=== PATIENT | female | born 1990 | race African-American/Black ===

== ENCOUNTER 2025-02-22 05:53 | Emergency (ER) | payer BC, SELFPAY ==
[2025-02-22 05:54] VITALS: BP 128/63; PULSE 108; RESP 18; TEMP 36.9; O2SAT 100; BMI 26.7
--- NOTE | 2025-02-22 06:24 | CT_ITS ---
PROCEDURE: ABDOMEN/PELVIS WITHOUT CONT 02/22/2025 REASON FOR EXAM: LEFT FLANK PAIN TECHNIQUE: Abdomen and pelvis CT without intravenous contrast. Noncontrast technique limits evaluation of the abdominal and pelvic viscera. Coronal and Sagittal reconstruction series were provided. One or more dose reduction techniques were used (e.g., Automated exposure control, adjustment of the mA and/or kV according to patient size, use of iterative reconstruction technique). PATIENT PREPARATION: Per protocol ORAL CONTRAST TYPE: None. COMPARISON: None available FINDINGS: The lung bases are clear. The liver, adrenal glands, kidneys, gallbladder, pancreas and spleen appear within limits. No renal stones, hydronephrosis or perinephric stranding. Abdominal aorta appears within limits on noncontrast imaging. No adenopathy. No bowel dilation or free air. Normal caliber appendix without secondary signs. Sigmoid diverticulosis without diverticulitis. The ovaries/adnexa, uterus and bladder appear within limits on noncontrast imaging. Right ovary is not well distinguished from adjacent bowel. Trace right lower quadrant free fluid. The visualized osseous structures appear within limits. CT/Abdomen/Pelvis without Cont IMPRESSION: No definite evidence of acute process on noncontrast imaging as above. Reading Location: [id number]
[2025-02-22] MEDS: Ketorolac 30 MG/ML Syringe IV (06:42)
[2025-02-22] MEDS: 0.9% Normal Saline (1000mL) 1,000 ML 999 ML IV (06:42)
[2025-02-22] MEDS: Orphenadrine 60 MG/2 ML Ampul IV (06:42)
[2025-02-22 06:52] LABS: Mucous, Urine 0 SEEN /hpf (<or=2+); White Blood Cells 0 SEEN /hpf (0-5)
[2025-02-22 06:54] LABS: Absolute Lymphocyte Count 1.73 X10^3/uL (0.83-4.51); Absolute Neutrophil Count 2.7 X10^3/uL (2.0-7.7); Basophil# 0.03 X10^3/uL; Basophil% 0.6 % (0-1); Eosinophils% 5.9 % (0-5); Hematocrit 38.8 % (37-47); Hemoglobin 13.4 g/dL (12.0-15.0); Lymphocyte # 1.73 X10^3/ul (0.83-4.51); Lymphocyte % 33.9 % (19-41); Mean Corp Hgb Conc 34.5 g/dL (32-36); Mean Corpuscular Hgb 31.8 pg (27.0-32.0); Mean Corpuscular Volume 92.2 fL (81-99); Mean Platelet Vol. 10.2 fl (6.2-12.0); Monocyte# 0.38 X10^3/uL; Monocyte% 7.5 % (0-10); NRBC Flagged by Analyzer 0 % (0-5); Neutrophil # 2.65 X10^3/uL (2.7-7.7); Neutrophil % 51.9 % (47-70); POSITIVE COUNT YES; RBC Distribution Width CV 12.2 % (11.6-14.6); RBC Distribution Width SD 41.6 fl (35.1-43.9); Red Blood Count 4.21 M/mm3 (4.2-5.4); White Blood Count 5.1 K/mm3 (4.4-11.0)
[2025-02-22 06:54] LABS: Color, Urine Yellow (Yellow); Glucose, Dipstick Normal (Normal); Ketone-Dipstick Negative (Negative); Leukocyte Esterase-Dipstick Negative /ul (Negative); Nitrite-Dipstick Negative (Negative); Occult Blood-Urine 10 /ul (Negative); Protein-Dipstick 15 mg/dl (Negative); Specific Gravity, Urine 1.015 (1.002-1.030); Urine Bilirubin Dipstick Negative (Negative); Urine Clarity Clear (Clear); Urine Urobilinogen Normal (Normal)
[2025-02-22 06:58] LABS: Differential Indicated SCAN CRITERIA MET
[2025-02-22 07:01] LABS: Amorphous Sediment 1+; Bacteria 2+ /hpf (None Seen); Red Blood Cells-Urine 0-5 SEEN /hpf (0-5); Squamous Epithelial Cells - UA 0-5 SEEN /hpf (5-10)
[2025-02-22 07:07] LABS: Anion Gap 11 (5-15); BUN 9 mg/dL (4-19); BUN/Creat Ratio 11.3 RATIO (10-20); Calcium,Total 8.7 mg/dL (7.6-11.0); Carbon Dioxide 22.6 mmol/L (21.0-32.0); Chloride 105 mmol/L (98-108); Creatinine, Serum 0.79 mg/dL (0.70-1.20); EST Glomerular Filtration Rate 101 (>60); Estimated Creatinine Clearance 105.97 ml/min (50-250); Glucose 100 mg/dL (70-99); Potassium 3.8 mmol/L (3.3-5.1); Sodium Level 138 mmol/L (133-145)
[2025-02-22 07:14] LABS: Internal QC Validated? YES +Cl - CLEAR BKGD; Pregnancy, Urine Negative Negative
--- NOTE | 2025-02-22 07:42 | EX.ED.DYSGE1 ---
HPI History of Present Illness Chief Complaint: Other, Pain/Inj Informant: patient and spouse/S.O. Narrative Narrative: Patient is a 34-year-old female who reports no significant past medical history. She states at work she lifts heavy objects and does repetitive lifting and has been working 6 days a week. She denies any sudden onset of pain but states over the past week she has noticed pain in the left back region. She states there is increased pain with motion. She denies any radiation of pain into the leg and she denies any loss of bowel or bladder control or IV drug use. She has no concern for and states there is been no dysuria or hematuria. However she states that her pain worsened last night keeping her from sleeping and secondary to that she comes in for evaluation. PFSH PFSH Medical History no medical history no medical history Home Medications ?Medication ?Instructions ?Recorded ?Last Taken ?Type ibuprofen 600 mg tablet 600 mg PO 4X/DAY PRN pain #40 tabs 02/22/25 Unknown Rx methocarbamol 500 mg tablet 1,000 mg (2 x 500 mg) PO 4X/DAY 02/22/25 Unknown Rx PRN Muscle pain/spasm #56 tabs Allergy/AdvReac Type Severity Reaction Status Date / Time codeine Allergy Hives Verified 02/22/25 05:54 Social History Smoking Status: Current every day smoker tobacco type: cigarettes and e-cigarettes ROS ROS ED Constitutional Constitutional ED: Denies chills or fever(s) ENT ENT ED: Denies sore throat Cardiovascular Cardiovascular: Denies chest pain Respiratory/Chest Respiratory/Chest: Denies cough or dyspnea Gastrointestinal Gastrointestinal: Denies abdominal pain, diarrhea, nausea or vomiting Genitourinary Genitourinary ED: Denies dysuria, hematuria or urinary frequency Musculoskeletal Musculoskeletal: Reports back pain Integumentary Denies rash Neurologic Neurologic: Denies headache(s) Hematologic/Lymphatic Hematologic/Lymphatic: Denies easy bleeding or easy bruising EXAM Physical Exam Const Vital Signs: 02/22/25 05:54 02/22/25 05:58 Temperature 98.4 F Temperature Source Oral Pulse Rate 108 H Respiratory Rate 18 Respiratory Effort Normal Respiratory Pattern Normal Blood Pressure 128/63 H Blood Pressure Mean 84 Pulse Ox 100 Oxygen Delivery Method Room Air Positive well nourished and well developed General Appearance ED: well developed; Negative for pallor HEENT HEENT Narrative: Normocephalic atraumatic Eyes PERRL and EOMs intact bilaterally General Eye ED: Negative for pale conjunctiva or scleral icterus Neck supple Neck Narrative: No nuchal rigidity or meningeal signs Resp normal respiratory effort and clear to auscultation bilaterally Cardio regular rate and regular rhythm Rate: other Other Details: Heart is regular rate and rhythm without murmurs rubs or gallops Radial and carotid pulses are equal and symmetric GI normal to inspection, nondistended, normoactive bowel sounds, non-tender, non-distended and no masses GI Narrative: No voluntary guarding rigidity or pulsatile mass Auscultation: normoactive bowel sounds Palpation: soft Back/Spine Back/Spine Narrative: Positive left CVA pain as noted There is no bony deformity or step-off of the thoracic or lumbar spine no midline tenderness to palpation Patient also has left paralumbar tenderness and spasm that worsens slightly with back extension and rotation No saddle anesthesia. Negative straight leg raise. No clonus or Babinski. Patellar reflexes are plus 2 out of 4 bilaterally No overlying soft tissue changes to suggest trauma or infection Extremity normal to inspection Neuro oriented x3, CN's II-XII intact bilaterally and no sensory deficits noted Sensorium / Orientation: alert Motor Exam: strength 5/5 throughout Psych mental status grossly normal Skin no rashes or lesions noted and no wounds General Skin Exam: Negative for jaundice or pallor MDM MDM MDM Narrative Medical decision making narrative: Patient arrived to the ER with stable vitals and reported left-sided back pain. She denied any sudden onset of the symptoms but does report a repetitive and physical job. Therefore differential diagnosis is for lumbosacral strain the patient could also have atypical UTI or pyelonephritis or kidney stone. She is also potentially having pain secondary to an unknown complication. test was negative going against complication. Blood work showed no white count or left shift or signs of JELENA. Urine sample showed +2 bacteria but there are no white cells and she is nitrite negative and she does not have dysuria indicating this is normal rosa and there is no need for antibiotics. This indicates she does not have UTI or pyelonephritis. After receiving IV fluids as well as Toradol and Norflex she did report improvement of her pain. Therefore at this time as CT scan reveals no obvious signs of kidney stone or intestinal pathology and blood work is normal as well there is no need for further workup as exam and history indicate this is most likely musculoskeletal back pain in origin. She also does not have risk factors for cauda equina or epidural abscess or discitis or osteomyelitis I do not feel there is need for potential MRI or emergent orthopedic/spine consultation. Patient will be placed on symptomatic medications and is otherwise safe for discharge History & Record Review Discussion w/independent historian: Patient and Significant other Lab Data Attestation: I reviewed the patient's lab results. Labs: Laboratory Results - last 24 hr 02/22/25 02/22/25 06:34 06:36 WBC 5.1 RBC 4.21 Hgb 13.4 Hct 38.8 MCV 92.2 MCH 31.8 MCHC 34.5 RDW Std Deviation 41.6 RDW Coeff of Pierre 12.2 Plt Count TNP MPV 10.2 Immature Gran % (Auto) 0.200 Neut % (Auto) 51.9 Lymph % (Auto) 33.9 [place] % (Auto) 7.5 Eos % (Auto) 5.9 H Baso % (Auto) 0.6 Absolute Neuts (auto) 2.7 Absolute Lymphs (auto) 1.73 Nucleated RBC % 0 Platelet Estimate ADEQUATE Sodium 138 Potassium 3.8 Chloride 105 Carbon Dioxide 22.6 Anion Gap 11 BUN 9 Creatinine 0.79 Estim Creat Clear Calc 105.97 Est GFR (MDRD) Non-Af 101 BUN/Creatinine Ratio 11.3 Glucose 100 H Calcium 8.7 Urine Color Yellow Urine Clarity Clear Urine pH 6.0 Ur Specific [place] 1.015 Urine Protein 15 H Urine Glucose (UA) Normal Urine Ketones Negative Urine Occult Blood 10 H Urine Nitrite Negative Urine Bilirubin Negative Urine Urobilinogen Normal Ur Leukocyte Esterase Negative Urine RBC 0-5 SEEN Urine WBC 0 SEEN Ur Squamous Epith Cells 0-5 SEEN Amorphous Sediment 1+ Urine Bacteria 2+ Urine Mucus 0 SEEN Urine Test Negative Radiography Diagnostic Testing: Clinical Impression(s) from Imaging Studies Abdomen/Pelvis CT 02/22/25 06:24 IMPRESSION: No definite evidence of acute process on noncontrast imaging as above. Reading Location: [facility] Discharge Plan Triage Chief Complaint: Other, Pain/Inj ED Provider: Curtis Diamond Dx/Rx/DC Orders Clinical Impression: Acute myofascial strain of lumbosacral region Instructions: Understanding Lumbosacral Strain, ED Back Sprain/Strain Prescriptions: New ibuprofen 600 mg tablet 600 mg PO 4X/DAY PRN (Reason: pain) Qty: 40 0RF methocarbamol 500 mg tablet 1,000 mg PO 4X/DAY PRN (Reason: Muscle pain/spasm) Qty: 56 0RF Stand Alone Forms: ED Work / School Excuse Primary Care Provider: Care Physician,No Primary Referrals: Ravi Marvin MD [Med Staff - Active Staff] - Care Physician,No Primary [Primary Care Provider] - Activity Restrictions/Additional Instructions: Your blood work revealed no clinically significant changes and your urine sample showed no sign of infection. CT scan showed no sign of kidney stone or intestinal infection either. This indicates your pain is musculoskeletal most likely from your repetitive lifting at work. Continue to stretch and heat the low back to help reduce pain and speed healing and take the prescribed medication as directed. Return to the ER should you have any further concerns Print Language: Brazilian Disposition Disposition: Home, Self Care
[2025-02-22 07:47] LABS: Platelet Estimate ADEQUATE (ADEQ)
[2025-02-22 08:12] VITALS: BP 128/76; PULSE 64; RESP 18; TEMP 37.1; O2SAT 99
== END 2025-02-22 08:13 | disposition home or self-care (01) ==
PROVIDERS: Emergency Provider Emergency Medicine; Visit Provider Emergency Medicine
DX: S39.012A Strain of muscle, fascia and tendon of lower back, initial encounter (principal); X58.XXXA Exposure to other specified factors, initial encounter; F17.210 Nicotine dependence, cigarettes, uncomplicated; F17.290 Nicotine dependence, other tobacco product, uncomplicated; Z79.899 Other long term (current) drug therapy
CPT/HCPCS: 74176; 80048; 81001; 81025; 85025; 96361; 96374; 96375; 99283; A4216

== ENCOUNTER 2025-09-13 12:06 | Emergency (ER) | payer SELFPAY ==
[2025-09-13 12:07] VITALS: BP 121/77; PULSE 117; RESP 16; TEMP 36.8; O2SAT 100; BMI 26.4
--- NOTE | 2025-09-13 13:12 | RAD_ITS ---
PROCEDURE: CHEST PA AND LATERAL 09/13/2025 REASON FOR EXAM: LEFT BACK PAIN TECHNIQUE: Procedure Code: RADCXR Modality: DX Procedure: CHEST PA AND LATERAL COMPARISON: None FINDINGS: Hardware: None Heart: The heart size is normal. Mediastinum: The mediastinal contour is unremarkable. Lungs: The lungs are clear. Bones: The bones are unremarkable. RAD/Chest PA and Lateral IMPRESSION: NO ACUTE FINDINGS. Reading Location: [id number]
[2025-09-13 13:34] LABS: Mucous, Urine 0 SEEN /hpf (<or=2+)
[2025-09-13 13:36] LABS: Color, Urine Yellow (Yellow); Glucose, Dipstick Normal (Normal); Ketone-Dipstick 15 mg/dl (Negative); Leukocyte Esterase-Dipstick 25 /ul (Negative); Nitrite-Dipstick Negative (Negative); Occult Blood-Urine 10 /ul (Negative); Protein-Dipstick 15 mg/dl (Negative); Specific Gravity, Urine 1.010 (1.002-1.030); Urine Bilirubin Dipstick Negative (Negative)
[2025-09-13 13:46] LABS: Red Blood Cells-Urine 0-5 SEEN /hpf (0-5); Squamous Epithelial Cells - UA 0-5 SEEN /hpf (5-10)
[2025-09-13 13:47] LABS: Internal QC Validated? YES +Cl - CLEAR BKGD; Pregnancy, Urine Negative Negative; Record Kit Lot#,Urine Preg 980607
--- NOTE | 2025-09-13 15:01 | ED.VIS.BACK ---
HPI History of Present Illness Chief Complaint: Back Narrative Narrative: Patient is a 34-year-old female with no signal past medical history presenting with left-sided back pain for the past few days. She states is always aching in that area but is been worse over the past few days. She denies any new physical activity that could have caused it. States the pain will radiate up to her arm and sometimes down to her hip. She notes it is worse with twisting and bending. Denies any change with breathing. Denies any associate shortness of breath or chest pain. Denies any nausea or vomiting. Denies any fever. Denies any urinary symptoms. Notes her last menstrual period was repaired August 26 and she is not concerned for . Is tried ibuprofen at home with no relief. Had similar symptoms this spring was seen in the ER and had a CAT scan. At that time she states her workup was negative and she was sent home with medications for the pain. [facility] Medical History Back pain Home Medications ?Medication ?Instructions ?Recorded ?Last Taken ?Type ibuprofen 600 mg tablet 600 mg PO 4X/DAY PRN pain #40 tabs 09/13/25 Unknown Rx methocarbamol 500 mg tablet 1,000 mg (2 x 500 mg) PO 4X/DAY 09/13/25 Unknown Rx PRN Muscle pain/spasm #56 tabs Allergy/AdvReac Type Severity Reaction Status Date / Time codeine Allergy Hives Verified 09/13/25 12:08 Family History no significant family his Social History Smoking Status: Current every day smoker tobacco type: cigarettes and e-cigarettes ROS ROS ED Constitutional Constitutional ED: Denies chills or fever(s) Cardiovascular Cardiovascular: Denies chest pain Respiratory/Chest Respiratory/Chest: Denies dyspnea Gastrointestinal Gastrointestinal: Denies abdominal pain, nausea or vomiting Musculoskeletal Musculoskeletal: Reports back pain; Denies arthralgias or myalgias Integumentary Denies rash Neurologic Neurologic: Denies paresthesias or weakness Hematologic/Lymphatic Hematologic/Lymphatic: Denies easy bleeding or easy bruising EXAM Physical Exam Const Vital Signs: 09/13/25 12:07 09/13/25 15:07 Temperature 98.3 F 97.8 F Temperature Source Oral Pulse Rate 117 H 90 Respiratory Rate 16 18 Blood Pressure 121/77 H 148/52 H Blood Pressure Mean 91 84 Pulse Ox 100 100 Oxygen Delivery Method Room Air Positive well nourished and well developed General Appearance ED: well developed and NAD HEENT Reports moist mucous membranes Neck supple and no JVD Resp normal respiratory effort and clear to auscultation bilaterally Auscultation: Negative for rales, rhonchi or wheezes Cardio regular rate and regular rhythm Cardio Narrative: 2+ radial pulses Back/Spine normal to inspection Back/Spine Narrative: Mild tenderness to palpation of the left inferolateral scapular region. No overlying skin changes present. No midline tenderness. Extremity normal to inspection General Extremety ED: Negative for edema General Extremity: Negative for edema Neuro oriented x3 Sensorium / Orientation: alert Psych mental status grossly normal Skin no rashes or lesions noted and no wounds MDM MDM MDM Narrative Medical decision making narrative: Patient is evaluated for atraumatic left back pain. Seems to be more in the thoracic region but is close to her CVA region. Differential includes muscle spasm, thoracic radiculopathy, pneumonia, pneumothorax and referred renal colic pain. Chest x-ray reviewed looking for signs of pleural effusion in that area as well as pneumothorax. This is negative on my interpretation as well as with radiology. Urinalysis does not show any significant hematuria or signs of infection. CT from earlier this spring reviewed which did not show any kidney stones on interpretation. Patient was receives IM Toradol in the ER. Repeat evaluation she states she is feeling much improved. She was tachycardic upon arrival however at time of discharge per nursing staff her blood pressure is now within her heart rate is below 100. Her pain is not pleuritic and she is having shortness of breath of the lower suspicion for pulmonary emboli. Patient will be discharged home symptomatic treatment with Robaxin and Motrin. Given return precautions. Discharged home in stable and improved condition. Lab Data Attestation: I reviewed the patient's lab results. Labs: Laboratory Results - last 24 hr 09/13/25 13:20 Urine Color Yellow Urine Clarity Clear Urine pH 7.0 Ur Specific [place] 1.010 Urine Protein 15 H Urine Glucose (UA) Normal Urine Ketones 15 H Urine Occult Blood 10 H Urine Nitrite Negative Urine Bilirubin Negative Urine Urobilinogen Normal Ur Leukocyte Esterase 25 H Urine RBC 0-5 SEEN Urine WBC 0-5 SEEN Ur Squamous Epith Cells 0-5 SEEN Urine Bacteria 1+ Urine Mucus 0 SEEN Urine Test Negative Radiography Diagnostic Testing: Clinical Impression(s) from Imaging Studies Chest X-Ray 09/13/25 13:12 IMPRESSION: NO ACUTE FINDINGS. Reading Location: [facility] Discharge Plan Triage Chief Complaint: Back Other Complaint: Lower Extremity Injury ED Provider: Phuong Brandon Dx/Rx/DC Orders Clinical Impression: Acute left-sided thoracic back pain Instructions: ED Back Spasm, No Trauma Prescriptions: Continued methocarbamol 500 mg tablet 1,000 mg PO 4X/DAY PRN (Reason: Muscle pain/spasm) Qty: 56 0RF ibuprofen 600 mg tablet 600 mg PO 4X/DAY PRN (Reason: pain) Qty: 40 0RF Stand Alone Forms: ED Work / School Excuse Primary Care Provider: Care Physician,No Primary Referrals: Jeinse Pyle [Non-Staff, Medical] Care Physician,No Primary [Primary Care Provider, Medical] Activity Restrictions/Additional Instructions: Your chest x-ray was normal. Your urinalysis was not consistent with infection or kidney stone. Your test was negative. I suspect this is a muscle strain. If you develop any respiratory symptoms or chest pain please return the emergency room. I do recommend using [id number] Lidoderm patches as well to help with the pain Print Language: Nicaraguan Disposition Disposition: Home, Self Care Discharge Date/Time: 09/13/25 15:08
[2025-09-13 15:07] VITALS: BP 148/52; PULSE 90; RESP 18; TEMP 36.6; O2SAT 100
--- OUTSIDE RECORDS SUMMARY | 2025-09-13 17:55 | XMS RPT_ITS | CCD ---
Author Organization [employer] Inform ion Partnership [facility] Care Team Providers Care Sanipractic Physician Name Role Phone Curtis Diamond Attending [facility] Care Physician, No Primary Primary Care Unava ilable Allergies Allergy Classification Reported Allergen(s) Allergy Type Date of Onset Reaction(s) Facility (1 source) Codeine Drug Allergy 02-22-2025 [facility] Repository Problems Problem Classification Problem Date Documented Da te Episodic/Chronic Residual codes; unclassified (1 source) Pain, unspecified; Translations: [Pain, unspecified] Onset: 02-27-2025 Episodic Results Test Name Value Interpretation Reference Range Facility Abdomen/Pelvis without Conto n 02-22-2025 Abdomen/Pelvis without Cont [facility] Imaging Services [address] [place], [place] [id number] Abdomen/Pelvis without Cont MR#: [id number] Acct: [id number] Name: DEBBY HART Rep #: [id number] : 1990 F 34 From: Alan Mckinney MD PCP: Care Physician,No Primary Status: REG ER Study: Abdomen/Pelvis without Cont Date of Exam: 01/26 07/21 Exam# [id number] Ordering Dr: Curtis Diamond DO PROCEDURE: ABDOMEN/PELVIS WITHOUT CONT 02/22/2025 REASON FOR EXAM: LEFT FLANK PAIN TECHNIQUE: Abdomen and pelvis CT without intravenous contrast. Noncontrast technique limits evaluation of the abdominal and pelvic viscera. Coronal and Sagittal reconstruction series were provided. One or more dose reduction techniques were used (e.g., Automated exposure control, adjustment of the mA and/or kV according to patient size, use of iterative reconstruction technique). PATIENT PREPARATION: Per protocol ORAL CONTRAST TYPE: None. COMPARISON: None available FINDINGS: The lung bases are clear. The liver, adrenal glands, kidneys, gallbladder, pancreas and spleen appear within limits. No renal stones, hydronephrosis or perinephric stranding. Abdominal aorta appears within limits on noncontrast imaging. No adenopathy. No bowel dilation or free air. Normal caliber appendix without secondary signs. Sigmoid diverticulosis without diverticulitis. The ovaries/adnexa, uterus and bladder appear within limits on noncontrast imaging. Right ovary is not well distinguished from adjacent bowel. Trace right lower quadrant free fluid. The visualized osseous structures appear within limits. CT/Abdomen/Pelvis without Cont IMPRESSION: No definite evidence of acute process on noncontrast imaging as above. Reading Location: [id number] CC: Curtis Diamond DO; No Primary Care Physician Delivery Engineer: Signed Normal [facility] Basic Metabolic Profile (BMP )on 02-22-2025 BUN/CRE 11.3 RATIO Normal 10-20 [facility] Comment on above: Performed By: #### L 100.0100, L500.2500, L700.6800 #### [facility] [address] [place], [address] Calcium [Mass/Vol] 8.7 mg/dL Normal 7.6-11.0 [facility] Comment on above: Performed By: #### L 100.0100, L500.2500, L700.6800 #### [facility] [address] [place], [address] Chloride [Moles/Vol] 105 mmol/L Normal 98-108 [facility] Comment on above: Performed By: #### L 100.0100, L500.2500, L700.6800 #### [facility] [address] [place], [address] CO2 [Moles/Vol] 22.6 mmol/L Normal 21.0-32.0 [facility] Comment on above: Performed By: #### L 100.0100, L500.2500, L700.6800 #### [facility] [address] [place], [address] Creatinine [Mass/Vol] 0.79 mg/dL Normal 0.70-1.20 [facility] Comment on above: Performed By: #### L 100.0100, L500.2500, L700.6800 #### [facility] [address] [place], [address] ECRCL 105.97 ml/min Normal 50-250 [facility] Comment on above: Performed By: #### L 100.0100, L500.2500, L700.6800 #### [facility] [address] [place], [address] GAP 11 Normal 5-15 [facility] Comment on above: Performed By: #### L 100.0100, L500.2500, L700.6800 #### [facility] [address] [place], [address] GFR/1.73 sq M.predicted among non-blacks MDRD (S/P/Bld) [Vol rate/Area] 101 mL/min/{1.73_m2} Normal >60 [facility] Comment on above: Result Comment: mL/m in/1.73m2 CKD-EPI Creatinine Equation (2020) Performed By: #### L 100.0100, L500.2500, L700.6800 #### [facility] [address] [place], [address] Glucose [Mass/Vol] 100 mg/dL High 70-99 [facility] Comment on above: Performed By: #### L 100.0100, L500.2500, L700.6800 #### [facility] [address] [place], [address] Potassium [Moles/Vol] 3.8 mmol/L Normal 3.3-5.1 [facility] Comment on above: Result Comment: Hemo lysis present, Results??could be affected. ?? Performed By: #### L 100.0100, L500.2500, L700.6800 #### [facility] [address] [place], [address] Sodium [Moles/Vol] 138 mmol/L Normal 133-145 [facility] Comment on above: Performed By: #### L 100.0100, L500.2500, L700.6800 #### [facility] [address] [place], [address] Urea nitrogen [Mass/Vol] 9 mg/dL Normal 4-19 [facility] Comment on above: Performed By: #### L 100.0100, L500.2500, L700.6800 #### [facility] [address] [place], [address] CBC W/Diff, Automatedon 04- PLT EST ADEQUATE Normal ADEQ [facility] Comment on above: Performed By: #### L 100.0100, L500.2500, L700.6800 #### [facility] [address] [place], [address] Emergency Department Summary on 02-22-2025 Emergency Department Summary [facility] Medical Records Department [address] [place] [address] Emergency Department Summary 02/22/25 MR#: [id number] Acct: [id number] Name: DEBBY HART Rep #: [id number] : 1990 34 From: Curtis Diamond DO PCP: Care Physician,No Primary Status:REG ER Location: ED HPI History of Present Illness Chief Complaint: Other, Pain/Inj Informant: patient and spouse/S.O. Narrative Narrative: Patient is a 34-year-old female who reports no significant past medical history. She states at work she lifts heavy objects and does repetitive lifting and has been working 6 days a week. She denies any sudden onset of pain but states over the past week she has noticed pain in the left back region. She states there is increased pain with motion. She denies any radiation of pain into the leg and she denies any loss of bowel or bladder control or IV drug use. She has no concern for and states there is been no dysuria or hematuria. However she states that her pain worsened last night keeping her from sleeping and secondary to that she comes in for evaluation. [facility] Medical History no medical history no medical history Home Medications ???Medication ???Instructions ???Recorded ???Last Taken ???Type ibuprofen 600 mg tablet 600 mg PO 4X/DAY PRN pain #40 tabs 02/22/25 Unknown Rx methocarbamol 500 mg tablet 1,000 mg (2 x 500 mg) PO 4X/DAY Unknown Rx PRN Muscle pain/spasm #56 tabs Allergy/AdvReac Type Severity Reaction Status Date / Time codeine Allergy Hives Verified 02/22/25 05:54 Social History Smoking Status: Current every day smoker tobacco type: cigarettes and e-cigarettes ROS ROS ED Constitutional Constitutional ED: Denies chills or fever(s) ENT ENT ED: Denies sore throat Cardiovascular Cardiovascular: Denies chest pain Respiratory/Chest Respiratory/Chest: Denies cough or dyspnea Gastrointestinal Gastrointestinal: Denies abdominal pain, diarrhea, nausea or vomiting Genitourinary Genitourinary ED: Denies dysuria, hematuria or urinary frequency Musculoskeletal Musculoskeletal: Reports back pain Integumentary Denies rash Neurologic Neurologic: Denies headache(s) Hematologic/Lymphatic Hematologic/Lymphatic : Denies easy bleeding or easy bruising EXAM Physical Exam Const Vital Signs: 02/22/25 05:54 02/22/25 05:58 Temperature 98.4 F Temperature Source Oral Pulse Rate 108 H Respiratory Rate 18 Respiratory Effort Normal Respiratory Pattern Normal Blood Pressure 128/63 H Blood Pressure Mean 84 Pulse Ox 100 Oxygen Delivery Method Room Air Positive well nourished and well developed General Appearance ED: well developed; Negative for pallor HEENT HEENT Narrative: Normocephalic atraumatic Eyes PERRL and EOMs intact bilaterally General Eye ED: Negative for pale conjunctiva or scleral icterus Neck supple Neck Narrative: No nuchal rigidity or meningeal signs Resp normal respiratory effort and clear to auscultation bilaterally Cardio regular rate and regular rhythm Rate: other Other Details: Heart is regular rate and rhythm without murmurs rubs or gallops Radial and carotid pulses are equal and symmetric GI normal to inspection, nondistended, normoactive bowel sounds, non-tender, non-distended and no masses GI Narrative: No voluntary guarding rigidity or pulsatile mass Auscultation: normoactive bowel sounds Palpation: soft Back/Spine Back/Spine Narrative: Positive left CVA pain as noted There is no bony deformity or step-off of the thoracic or lumbar spine no midline tenderness to palpation Patient also has left paralumbar tenderness and spasm that worsens slightly with back extension and rotation No saddle anesthesia. Negative straight leg raise. No clonus or Babinski. Patellar reflexes are plus 2 out of 4 bilaterally No overlying soft tissue changes to suggest trauma or infection Extremity normal to inspection Neuro oriented x3, CN's II-XII intact bilaterally and no sensory deficits noted Sensorium / Orientation: alert Motor Exam: strength 5/5 throughout Psych mental status grossly normal Skin no rashes or lesions noted and no wounds General Skin Exam: Negative for jaundice or pallor MDM MDM MDM Narrative Medical decision making narrative: Patient arrived to the ER with stable vitals and reported left-sided back pain. She denied any sudden onset of the symptoms but does report a repetitive and physical job. Therefore differential diagnosis is for lumbosacral strain the patient could also have atypical UTI or pyelonephritis or kidney stone. She is also potentially having pain secondary to an unknown complication. test was negative going against complication. Blood work showed no white count (more content not included)... Normal [facility] ,Serum,hCG Quali.on 02-22-2025 HCG, SERUM QUAL Normal [facility] Comment on above: Result Comment: Canc elled via OM: MD Ordered Performed By: #### L 100.0100, L500.2500, L700.6800 #### [facility] [address] [place], [place], [id number] INTERNAL QC OK? Normal [facility] Comment on above: Result Comment: Canc elled via OM: MD Ordered Performed By: #### L 100.0100, L500.2500, L700.6800 #### [facility] [address] [place], [address] RECORD KIT LOT# Normal [facility] Comment on above: Result Comment: Canc elled via OM: MD Ordered Performed By: #### L 100.0100, L500.2500, L700.6800 #### [facility] [address] [place], [address] ,Urineon 02-22-2025 Beta HCG ( test) Ql (U) Negative Normal [facility] Comment on above: Result Comment: Very dilute urine specimens, as indicated by a low specific gravity, may not contain medicare sales representative levels of hCG. If is still suspected, a first morning urine specimen should be collected 48 hours later and tested. Performed By: #### L 400.7600 #### [facility] [address] [place], [address] Urinalysis, Completeon 02-22 AMORPHOUS 1+ Normal [facility] Comment on above: Order Comment: ARNOL CTOR TO SPECIFY Performed By: #### L 400.0001 #### [facility] [place], [address] BACTERIA 2+ /hpf Normal None Seen [facility] Comment on above: Order Comment: ARNOL CTOR TO SPECIFY Performed By: #### L 400.0001 #### [facility] [address] [place], [address] EPI,SQUAMOUS 0-5 SEEN Normal 5-10 [facility] Comment on above: Order Comment: ARNOL CTOR TO SPECIFY Performed By: #### L 400.0001 #### [facility] [address] [place], [address] RBC 0-5 SEEN Normal 0-5 [facility] Comment on above: Order Comment: ARNOL CTOR TO SPECIFY Performed By: #### L 400.0001 #### [facility] [address] [place], [address] Mucus Ql (Urine sed) 0 SEEN Normal [facility] Comment on above: Order Comment: ARNOL CTOR TO SPECIFY Performed By: #### L 400.0001 #### [facility] [address] [place], [place], [address] WBC 0 SEEN Normal 0-5 [facility] Comment on above: Order Comment: COLLE CTOR TO SPECIFY Performed By: #### L 400.0001 #### [facility] [address] [place], [address] CBC and Differentialon 09-22 Abs Baso 0.03 k/uL Normal <0.11 [facility] Comment on above: Performed By: #### C MP, TSH, CBCDIF ####[facility] [address] [place] [phone] Abs [place] 0.41 k/uL Normal <0.87 [facility] Comment on above: Performed By: #### C MP, TSH, CBCDIF ####[facility] [address] [place] [phone] Abs Neut 4.15 k/uL Normal 1.45-7.50 [facility] Comment on above: Performed By: #### C MP, TSH, CBCDIF ####[facility] [address]levelKevin [address] [phone] Absolute nRBC <0.01 Normal <0.01 [facility] Comment on above: Performed By: #### C MP, TSH, CBCDIF ####[facility] [address] [place] [phone] Basophils/100 WBC (Bld) 0.5 % Normal [facility] Comment on above: Performed By: #### C MP, TSH, CBCDIF ####[facility] [address] [place] [phone] DTYPE Auto Diff Normal [facility] Comment on above: Performed By: #### C MP, TSH, CBCDIF ####[facility] [address] [place] [phone] Eosinophils (Bld) [#/Vol] 0.09 10*3/uL Normal <0.46 [facility] Comment on above: Performed By: #### C MP, TSH, CBCDIF ####[facility] [place] [phone] Eosinophils/100 WBC (Bld) 1.5 % Normal [facility] Comment on above: Performed By: #### C MP, TSH, CBCDIF ####[facility] [place] [phone] Erythrocyte distribution width (RBC) [Ratio] 12.1 % Normal 11.5-15.0 [facility] Comment on above: Performed By: #### C MP, TSH, CBCDIF ####[place] [address] [place] [phone] Hematocrit (Bld) [Volume fraction] 41.7 % Normal 36.0-46.0 [facility] Comment on above: Performed By: #### C MP, TSH, CBCDIF ####[place] [address] [place] [phone] Hemoglobin (Bld) [Mass/Vol] 13.7 g/dL Normal 11.5-15.5 [facility] Comment on above: Performed By: #### C MP, TSH, CBCDIF ####[place] [address], [place] [phone] Lymphocytes (Bld) [#/Vol] 1.22 10*3/uL Normal 1.00-4.00 [facility] Comment on above: Performed By: #### C MP, TSH, CBCDIF ####[place] [address] [place] [phone] Lymphocytes/100 WBC (Bld) 20.6 % Normal [facility] Comment on above: Performed By: #### C MP, TSH, CBCDIF ####[facility] [phone] MCH (RBC) [Entitic mass] 31.1 pG Normal 26.0-34.0 [facility] Comment on above: Performed By: #### C MP, TSH, CBCDIF ####[facility], [place] [phone] MCHC (RBC) [Mass/Vol] 32.9 g/dL Normal 30.5-36.0 [facility] Comment on above: Performed By: #### C MP, TSH, CBCDIF ####[facility], [place] [phone] MCV (RBC) [Entitic vol] 94.6 fL Normal 80.0-100.0 [facility] Comment on above: Performed By: #### C MP, TSH, CBCDIF ####[place] [address], [place] [phone] Monocytes/100 WBC (Bld) 6.9 % Normal [facility] Comment on above: Performed By: #### C MP, TSH, CBCDIF ####[facility], [place] [phone] Neutrophils/100 WBC (Bld) 70.5 % Normal [facility] Comment on above: Performed By: #### C MP, TSH, CBCDIF ####[facility], [place] [phone] NRBCs 0.0 /100 WBC Normal 0 [facility] Comment on above: Performed By: #### C MP, TSH, CBCDIF ####[facility] [address]ClevelandH[place], [place] [phone] Platelet mean volume (Bld) [Entitic vol] 10.5 fL Normal 9.0-12.7 [facility] Comment on above: Performed By: #### C MP, TSH, CBCDIF ####[facility], [place] [phone] Platelets (Bld) [#/Vol] 253 10*3/uL Normal 150-400 [facility] Comment on above: Performed By: #### C MP, TSH, CBCDIF ####[facility] [address] [place], [place] [phone] RBC (Bld) [#/Vol] 4.41 10*6/uL Normal 3.90-5.20 [facility] Comment on above: Performed By: #### C MP, TSH, CBCDIF ####[facility] [address] [place], [place] [phone] WBC (Bld) [#/Vol] 5.92 10*3/uL Normal 3.70-11.00 [facility] Comment on above: Performed By: #### C MP, TSH, CBCDIF ####[facility] [address] [place], [place] [phone] CNOVon 09-22-2019 CNOV Office Visit (UCWSTR ) DEBBY HART ([id number]) 1990 F Date Time Provider Department 09/22/19 6:45 AM SAMANTHA WINKLER) R[place] During your visit today, we recorded the following information about you: Temperature Pulse Respiration Blood pressure 98.2 degrees 100/minute 18/minute 122/80 Weight 82.5 kg Samantha Winkler PA-C 09/22/2019 10:19 AM Signed 09/22/2019 Patient presents with: Headache: off and on x 2 weeks-worse last 2 days SUBJECTIVE: This is a 28 year old that is here today for Complaint(s) of headache x 2 weeks, intermittently. Worse the last 2 days. Hx of migraines, but this is different. Notes fatigue. No previous hx of mono. She did have a sore throat 1 week ago, but that fully resolved. No rash. Overall feeling run down. Located on the right side of forehead and described as pressure. Has tried motrin with minimal relief. Denies worst MARTINS of life. Denies nausea, vomiting, head trauma, vision changes, dizziness, URI sx. PAST MEDICAL HISTORY Diagnosis Date - Acne - Environmental allergies - PMH - PAST MEDICAL HISTORY OF 05/27 normal color vision - PMH - PAST MEDICAL HISTORY OF 02/24 chip bone left foot - Precocious sexual development and puberty, not elsewhere classified age 14 years ALLERGIES Codeine; Grass Pollen; Pollen MEDICATIONS Current Outpatient Medications Medication Sig - Lactobac no.41/Bifidobact no.7 (PROBIOTIC-10 ORAL) Take by mouth. No current facility-administered medications for this visit. SOCIAL HISTORY Social History Tobacco Use - Smoking status: Current Some Day Smoker - Smokeless tobacco: Never Used - Tobacco comment: Trying to quit, smoking 1 pack every 2 weeks Substance Use Topics - Alcohol use: No - Drug use: No REVIEW OF SYSTEMS See HPI OBJECTIVE: BP 122/80 Pulse 100 Temp 36.8 ?C (98.2 ?F) (Tympanic) Resp 18 Wt 82.5 kg (181 lb 12.8 oz) SpO2 100% BMI 29.34 kg/m? APPEARANCE Well appearing, alert, in no acute distress, well-hydrated, well nourished. EYES PERRLA, conjunctiva and sclera normal. EARS External ears normal, canals clear. TMs normal ENDER NOSE/SINUS Nares normal. Septum midline. Mucosa normal. No drainage or sinus tenderness. THROAT normal, no erythema NECK Supple, no adenopathy; HEART RRR with normal S1 and S2 LUNG clear to auscultation, No wheezing, rhonchi, rales. NEURO AANDO x 3. CN II-XII grossly intact. ASSESSMENT/PLAN: 1. Fatigue, unspecified type - ICD9: 780.79, ICD10: R53.83 (primary diagnosis) Supportive care with fluids and rest - CBC + DIFF - COMP METABOLIC PANEL - DEBORAH BERNAL PANEL - TSH BLD - RAPID STREP TEST B/O - GROUP A STREPTOCOCCUS BY PCR 2. Headache, unspecified headache type - ICD9: 784.0, ICD10: R51 As above - CBC + DIFF - COMP METABOLIC PANEL - DEBORAH BERNAL PANEL - TSH BLD - RAPID STREP TEST B/O - GROUP A STREPTOCOCCUS BY PCR Reviewed red flags and when to seek care sooner in ER 3. Sore throat - ICD9: 462, ICD10: J02.9 - Rapid Strep negative in the office today and Throat culture pending - CBC + DIFF - COMP METABOLIC PANEL - DEBORAH BERNAL PANEL - TSH BLD - RAPID STREP TEST B/O - GROUP A STREPTOCOCCUS BY PCR The patient indicates understanding of these issues and agrees with the plan. Samantha Winkler PA-C Referring Provider: SELF [200] Allergies As of Date: 09/22/2019 Noted Allergy Reaction CODEINE 06/25/2005 7 - Swelling GRASS POLLEN 07/06/2009 POLLEN 07/06/2009 Date Reviewed: 09/22/2019 Reviewed by: Karlee Loyd LPN - Fully Assessed Reason for Visit: Headache [52] Cmt: off and on x 2 weeks-worse last 2 days Primary Visit Diagnosis:Fatigue, unspecified type [R53.83] Other Visit Diagnoses:Headache, unspecified headache type [R51] Sore throat [J02.9] Order(s):CBC + DIFF [SQCBCDIF] Order #: [id number] FUTURE COMP METABOLIC PANEL [SQCMP] Order #: [id number] FUTURE DEBORAH BERNAL PANEL [SQEBVPAN] Order #: [id number] FUTURE TSH BLD [SQTSH] Order #: [id number] FUTURE RAPID STREP TEST B/O [[id number]] Order #: [id number] GROUP A STREPTOCOCCUS BY PCR [SQGASPCR] Order #: [id number] Prescriptions as of 09/22/2019 Sig: PROBIOTIC-10 ORAL Take by mouth. Problem List As Of Date 09/22/2019 Noted Resolved Acne [L70.9] 07/06/2009 Contraceptive management [Z30.9] 06/28/2011 Vulvar itching [L29.2] 05/10/2015 Letter Text Encounter Status:Closed by SAMANTHA WINKLER PA-C on 09/22/19 Normal [facility] Comp Metabolic Panelon 09-22 Albumin [Mass/Vol] 4.6 g/dL Normal 3.9-4.9 [facility] Comment on above: Performed By: #### C MP, TSH, CBCDIF ####[facility], [place] [phone] ALP [Catalytic activity/Vol] 53 U/L Normal 34-123 [facility] Comment on above: Performed By: #### C MP, TSH, CBCDIF ####[place] [address], [place] [phone] ALT [Catalytic activity/Vol] 12 U/L Normal 7-38 [facility] Comment on above: Performed By: #### C MP, TSH, CBCDIF ####[place] [address], [place] [phone] Anion gap [Moles/Vol] 14 mmol/L Normal 9-18 [facility] Comment on above: Performed By: #### C MP, TSH, CBCDIF ####[place] [address], [place] [phone] AST [Catalytic activity/Vol] 18 U/L Normal 13-35 [facility] Comment on above: Performed By: #### C MP, TSH, CBCDIF ####[place] [address], [place] [phone] Bilirubin [Mass/Vol] 0.6 mg/dL Normal 0.2-1.3 [facility] Comment on above: Performed By: #### C MP, TSH, CBCDIF ####[place] [address], [place] [phone] Calcium [Mass/Vol] 9.1 mg/dL Normal 8.5-10.2 [facility] Comment on above: Performed By: #### C MP, TSH, CBCDIF ####[place] [address], [place] [phone] Chloride [Moles/Vol] 103 mmol/L Normal 97-105 [facility] Comment on above: Performed By: #### C MP, TSH, CBCDIF ####[place] [address] [place], [place] [phone] CO2 [Moles/Vol] 22 mmol/L Normal 22-30 [facility] Comment on above: Performed By: #### C BI TSH, CBCDIF ####[facility] [place], [place] [phone] Creatinine [Mass/Vol] 0.77 mg/dL Normal 0.58-0.96 [facility] Comment on above: Performed By: #### C BI, TSH, CBCDIF ####[facility] [place], [place] [phone] eGFR- Amer. >60 Normal [facility] Comment on above: Performed By: #### C BI, TSH, CBCDIF ####[address] [phone] GFR/1.73 sq M predicted among non-blacks MDRD (S/P/Bld) [Vol rate/Area] mL/min/{1.73_m2} Normal [facility] Comment on above: Result Comment: eGFR (Estimated GFR) Units of measure: mL/min/1.73 meters squared eGFR is derived from the reexpressed MDRD Study equation using the following parameters: serum creatinine, age, gender and race. The creatinine assay has been calibrated to be traceable to IDMS. An eGFR <60 mL/min/1.73m2 for >3 months is consistent with chronic kidney disease. Refer to KDOQI guidelines for clinical interpretation. In patients with unstable renal function, e.g. those with acute kidney injury, the eGFR may not accurately reflect actual GFR. Performed By: #### C MP, TSH, CBCDIF ####[facility] [place] [address] [phone] Glucose [Mass/Vol] 95 mg/dL Normal 74-99 [facility] Comment on above: Result Comment: The [place] [employer] Association (ADA) provides guidance for cutoff values for fasting glucose and random glucose. The ADA defines fasting as no caloric intake for at least 8 hours. Fasting plasma glucose results between 100 to 125 mg/dL indicate increased risk for diabetes (prediabetes). Fasting plasma glucose results greater than or equal to 126 mg/dL meet the criteria for diagnosis of diabetes. In the absence of unequivocal hyperglycemia, results should be confirmed by repeat testing. In a patient with classic symptoms of hyperglycemia or hyperglycemic crisis, random plasma glucose results greater than or equal to 200 mg/dL meet the criteria for diagnosis of diabetes. Reference: Standards of Medical Care in Diabetes 2016, [place] [employer] Association. Diabetes Care. 2016.39(Suppl 1). Performed By: #### C MP, TSH, CBCDIF ####[place] [address] [place], [place] [phone] Potassium [Moles/Vol] 3.9 mmol/L Normal 3.7-5.1 [facility] Comment on above: Performed By: #### C MP, TSH, CBCDIF ####[address] [phone] Protein [Mass/Vol] 7.0 g/dL Normal 6.3-8.0 [facility] Comment on above: Performed By: #### C MP, TSH, CBCDIF ####[place] [phone] Sodium [Moles/Vol] 139 mmol/L Normal 136-144 [facility] Comment on above: Performed By: #### C MP, TSH, CBCDIF ####[address] [phone] Urea nitrogen [Mass/Vol] 11 mg/dL Normal 7-21 [facility] Comment on above: Performed By: #### C MP, TSH, CBCDIF ####[place] [phone] EBV Antibody Panelon 11-27-2 019 EBV EA Ab, Qual Negative Normal Negative [facility] Comment on above: Result Comment: EBV EA-D IgG antibodies are not detectable. If the result is negative and exposure to Deborah-Bernal virus is suspected, a second sample should be collected and tested no less than one to two weeks later. Performed By: #### E BVPNL ####[place] [phone] EBV EA Antibody <0.2 Normal [facility] Comment on above: Result Comment: AI V ALUES ARE INTERPRETED FOLLOWS: NEGATIVE SPECIMENS <=0.8 EQUIVOCAL SPECIMENS 0.9 TO 1.0 POSITIVE SPECIMENS >=1.1 Antibody index(AI) values reflect qualitative changes in antibody concentration that cannot be associated with clinical condition or disease state. Performed By: #### E BVPNL ####[place] [phone] EBV Interpretation See below [facility] Comment on above: Result Comment: (NOT E) Syndrome EBV VCA EBV VCA EBV EA EBV NA IgM IgG No EBV Neg Neg Neg Neg Acute Infection Pos Pos Pos Pos Past Infection Neg Pos Neg Pos Reactivation Pos or Neg Pos Pos or Neg Pos Note: EBV NA appears last in acute infection Performed By: #### E BVPNL ####[place] [phone] EBV NA Ab, Qual Positive Critically abnormal Negative [facility] Comment on above: Result Comment: Spec imen is positive for EBV NA-1 IgG antibody. A positive test result presumes a current or past infection with EBV. Other EBV serology assays such as the EBV VCA IgM should be performed to confirm serologic status, active acute, past or indeterminate infection for EBV-associated infectious mononucleosis. Performed By: #### E BVPNL ####[address] [phone] EBV NA Antibody >8.0 Normal [facility] Comment on above: Result Comment: AI V ALUES ARE INTERPRETED FOLLOWS: NEGATIVE SPECIMENS <=0.8 EQUIVOCAL SPECIMENS 0.9 TO 1.0 POSITIVE SPECIMENS >=1.1 Antibody index(AI) values reflect qualitative changes in antibody concentration that cannot be associated with clinical condition or disease state. Performed By: #### E BVPNL ####[place] [phone] EBV VCA IgG >8.0 Normal [facility] Comment on above: Result Comment: AI V ALUES ARE INTERPRETED FOLLOWS: NEGATIVE SPECIMENS <=0.8 EQUIVOCAL SPECIMENS 0.9 TO 1.0 POSITIVE SPECIMENS >=1.1 Antibody index (AI) values reflect qualitative changes in antibody concentration that cannot be associated with clinical condition or disease state. Performed By: #### E BVPNL ####[place] [phone] EBV VCA IgG, Qual Positive Critically abnormal Negative [facility] Comment on above: Result Comment: Spec imen is positive for EBV VCA IgG antibody. A positive test result presumes a current or past infection with EBV. Other EBV serology assays such as the EBV VCA IgM should be performed to confirm serologic status, active acute, past or indeterminate infection for EBV-associated infectious mononucleosis. Performed By: #### E BVPNL ####[place] [phone] EBV VCA IgM <0.2 Normal [facility] Comment on above: Result Comment: AI V ALUES ARE INTERPRETED FOLLOWS: NEGATIVE SPECIMENS <=0.8 EQUIVOCAL SPECIMENS 0.9 TO 1.0 POSITIVE SPECIMENS >=1.1 The magnitude of the reported IgM level cannot be correlated to an endpoint titer (or clinical status). Performed By: #### E BVPNL ####[place] [phone] EBV VCA IgM, Qual Negative Normal Negative [facility] Comment on above: Result Comment: EBV VCA IgM antibodies are not detectable. Performed By: #### E BVPNL ####[place] [phone] Group A Strep by PCRon 09-22 GAS Specimen Source Throat Swab Normal [facility] Comment on above: Performed By: #### G ASPCR ####[place] [phone] Group A Strep PCR Negative Normal [facility] Comment on above: Result Comment: This test was developed and its performance characteristics determined by [facility]'s [facility] ([facility]). It has not been cleared or approved by the FDA. [facility] is regulated under CLIA as qualified to perform high complexity testing. This test is used for clinical purposes. It should not be regarded as investigational or for research. Performed By: #### G ASPCR ####[facility] [address] [place], [place] [phone] PROGRESSon 09-22-2019 PROGRESS HNO ID: [id number] Author: Samantha Winkler Service: ? Author Type: Physician It Infrastructure Project Manager Type: Progress Notes Filed: 09/22/2019 10:19 AM Note Text: 09/22/2019 Patient presents with: Headache: off and on x 2 weeks-worse last 2 days SUBJECTIVE: This is a 28 year old that is here today for Complaint(s) of headache x 2 weeks, intermittently. Worse the last 2 days. Hx of migraines, but this is different. Notes fatigue. No previous hx of mono. She did have a sore throat 1 week ago, but that fully resolved. No rash. Overall feeling run down. Located on the right side of forehead and described as pressure. Has tried motrin with minimal relief. Denies worst MARTINS of life. Denies nausea, vomiting, head trauma, vision changes, dizziness, URI sx. PAST MEDICAL HISTORY Diagnosis Date - Acne - Environmental allergies - PMH - PAST MEDICAL HISTORY OF 05/27 normal color vision - PMH - PAST MEDICAL HISTORY OF 02/24 chip bone left foot - Precocious sexual development and puberty, not elsewhere classified age 14 years ALLERGIES Codeine; Grass Pollen; Pollen MEDICATIONS Current Outpatient Medications Medication Sig - Lactobac no.41/Bifidobact no.7 (PROBIOTIC-10 ORAL) Take by mouth. No current facility-administered medications for this visit. SOCIAL HISTORY Social History Tobacco Use - Smoking status: Current Some Day Smoker - Smokeless tobacco: Never Used - Tobacco comment: Trying to quit, smoking 1 pack every 2 weeks Substance Use Topics - Alcohol use: No - Drug use: No REVIEW OF SYSTEMS See HPI OBJECTIVE: BP 122/80 Pulse 100 Temp 36.8 ?C (98.2 ?F) (Tympanic) Resp 18 Wt 82.5 kg (181 lb 12.8 oz) SpO2 100% BMI 29.34 kg/m? APPEARANCE Well appearing, alert, in no acute distress, well-hydrated, well nourished. EYES PERRLA, conjunctiva and sclera normal. EARS External ears normal, canals clear. TMs normal ENDER NOSE/SINUS Nares normal. Septum midline. Mucosa normal. No drainage or sinus tenderness. THROAT normal, no erythema NECK Supple, no adenopathy; HEART RRR with normal S1 and S2 LUNG clear to auscultation, No wheezing, rhonchi, rales. NEURO AANDO x 3. CN II-XII grossly intact. ASSESSMENT/PLAN: 1. Fatigue, unspecified type - ICD9: 780.79, ICD10: R53.83 (primary diagnosis) Supportive care with fluids and rest - CBC + DIFF - COMP METABOLIC PANEL - DEBORAH BERNAL PANEL - TSH BLD - RAPID STREP TEST B/O - GROUP A STREPTOCOCCUS BY PCR 2. Headache, unspecified headache type - ICD9: 784.0, ICD10: R51 As above - CBC + DIFF - COMP METABOLIC PANEL - DEBORAH BERNAL PANEL - TSH BLD - RAPID STREP TEST B/O - GROUP A STREPTOCOCCUS BY PCR Reviewed red flags and when to seek care sooner in ER 3. Sore throat - ICD9: 462, ICD10: J02.9 - Rapid Strep negative in the office today and Throat culture pending - CBC + DIFF - COMP METABOLIC PANEL - DEBORAH BERNAL PANEL - TSH BLD - RAPID STREP TEST B/O - GROUP A STREPTOCOCCUS BY PCR The patient indicates understanding of these issues and agrees with the plan. Samantha Winkler PA-C Normal [facility] TSHon 09-22-2019 TSH Qn 1.390 uU/mL Normal 0.270-4.200 [facility] Comment on above: Result Comment: If t he patient is , TSH reference range varies by gestational period: First Trimester (weeks 9-12): 0.180-2.990 mcIU/mL Second Trimester: 0.110-3.980 mcIU/mL Third Trimester: 0.480-4.710 mcIU/mL Cholo Guerrero et al. A Practical Approach for the Verifications and Determination of Site- and Trimester-Specific Reference Intervals for Thyroid Function tests in . Thyroid, 2019:29:3:412-420. Calvin E, et al. 2017 Guidelines of the [place] Thyroid Association for the Diagnosis and Management of Thyroid Disease during and the . Thyroid, 2017:27:3:315-389. Performed By: #### C MP, TSH, CBCDIF ####[facility] [place], [place] [phone] CNOVon 01-15-2019 CNOV Office Visit (WSTR ) DEBBY HART ([id number]) 1990 F Date Time Provider Department 01/15/19 3:45 PM MADISYN FINN ([facility]) [place] During your visit today, we recorded the following information about you: Temperature Pulse Respiration Blood pressure 98.2 degrees 100/minute 16/minute 118/78 Weight 84.7 kg Madisyn Finn APRN.PLASTER HELPER 01/15/2019 5:11 PM Signed Subjective HPI Debby Hart is a 28 year old female who presents with sore throat since yesterday. She has not had any sick contacts. She has used cough drops. Review of Systems Constitutional: Negative. Negative for fever. HENT: Positive for congestion and sore throat. Respiratory: Negative for cough. Cardiovascular: Negative. Gastrointestinal: Positive for nausea. Skin: Negative. Negative for rash. Neurological: Positive for headaches. BP 118/78 Pulse 100 Temp 36.8 ?C (98.2 ?F) (Left Tympanic) Resp 16 Wt 84.7 kg (186 lb 12.8 oz) SpO2 99% BMI 30.15 kg/m? PAST MEDICAL HISTORY Diagnosis Date - Acne - Environmental allergies - PMH - PAST MEDICAL HISTORY OF 05/27 normal color vision - PMH - PAST MEDICAL HISTORY OF 02/24 chip bone left foot - Precocious sexual development and puberty, not elsewhere classified age 14 years PAST SURGICAL HISTORY Procedure Laterality Date - NONE - TOOTH EXTRACTION ALLERGIES Codeine; Grass Pollen; Pollen MEDICATIONS Lactobac no.41/Bifidobact no.7 (PROBIOTIC-10 ORAL) Take by mouth. Drospirenone-Ethinyl Estradiol (CLARE, 28,) 3-0.03 mg per tablet Take 1 tablet by mouth once daily. FAMILY HISTORY Problem Relation Age of Onset - Heart Maternal Grandfather MT - Cancer Maternal Grandfather Lung - other (lung cancer) Other Maternal Great Aunt - other (throat cancer) Other Maternal Greatgrandmother - other (stomach cancer) Other Maternal Greatgrandfather Social History Tobacco Use - Smoking status: Current Some Day Smoker - Smokeless tobacco: Never Used - Tobacco comment: Trying to quit, smoking 1 pack every 2 weeks Substance Use Topics - Alcohol use: No - Drug use: No Objective Physical Exam Constitutional: She is well-developed, well-nourished, and in no distress. HENT: Right Ear: Tympanic membrane, external ear and ear canal normal. Left Ear: Tympanic membrane, external ear and ear canal normal. Nose: Nose normal. No rhinorrhea. Mouth/Throat: Uvula is midline, oropharynx is clear and moist and mucous membranes are normal. No oropharyngeal exudate, posterior oropharyngeal edema or posterior oropharyngeal erythema. Neck: Neck supple. Cardiovascular: Normal rate and regular rhythm. Pulmonary/Chest: Effort normal and breath sounds normal. No respiratory distress. She has no wheezes. She has no rales. Lymphadenopathy: She has no cervical adenopathy. Neurological: She is alert. Skin: Skin is warm and dry. No rash noted. Nursing note and vitals reviewed. ASSESSMENT/PLAN: 1. Sore throat - ICD9: 462, ICD10: J02.9 - suspect viral - Rapid Strep negative in the office today and Throat culture pending - Discussed supportive care treatment with fluids, rest and analgesia. - The patient may also use warm salt water gargles, throat lozenges and/or OTC throat spray as needed. - Call back if drooling, increased temperature, symptoms of dehydration and/or still sick in one week - RAPID STREP TEST B/O - STREP DNA - Follow-up with your PCP in 3-5 days if symptoms have not improved or sooner if symptoms worsen - Discussed red flags and need for immediate medical evaluation if any occur. - Discussed supportive care treatment with fluids, rest and analgesia. - Discussed expected course of illness YUNIEL Woodruff APRN.CNP 01/15/2019 4:47 PM Addendum ASSESSMENT/PLAN: 1. Sore throat - ICD9: 462, ICD10: J02.9 - suspect viral - Rapid Strep negative in the office today and Throat culture pending - Discussed supportive care treatment with fluids, rest and analgesia. - The patient may also use warm salt water gargles, throat lozenges and/or OTC throat spray as needed. - Call back if drooling, increased temperature, symptoms of dehydration and/or still sick in one week - RAPID STREP TEST B/O - Follow-up with your PCP in 3-5 days if symptoms have not improved or sooner if symptoms worsen - Discussed red flags and need for immediate medical evaluation if any occur. - Discussed supportive care treatment with fluids, rest and analgesia. - Discussed expected course of illness Madisyn Finn APRN.CNP SORE THROAT INSTRUCTIONS SORE THROAT OVERVIEW - Sore throat is a common problem during childhood, and is usually the result of a bacterial or viral infection. Although sore throat usually resolves without complications, it sometimes requires treatment with an antibiotic. There are some less common causes of sore throat that are serious or even life-threatening. This topic will discuss the most common causes and treatments of sore throat in children, as well as the warning signs of more serious conditions. SORE THROAT CAUSES - The most likely cause of a child's sore throat depends upon the child's age, the season, and the geographic area. While viruses are the most common cause of sore throat, bacteria are another common cause. Bacteria and viruses are spread from one person to another through hand contact. Hands get contaminated when the sick individual touches their nose or mouth and then touches another person directly (gtqr-vr-uydy contact) or indirectly (hdnl-qx-upuwui, such as doorknob, telephone, toys). It is difficult to determine the cause of sore throat based upon symptoms alone; an examination and laboratory test are recommended in most cases Viruses - There are many viruses that can cause pain and swelling of the throat. The most common include viruses that cause sore throat as part of an upper respiratory infection, such as the common cold. Other viruses that cause sore throat include influenza, adenovirus, and Deborah-Bernal virus (the cause of mononucleosis). Symptoms - Symptoms that may occur with a viral infection can include a runny nose and congestion, irritation or redness of the eyes, cough, hoarseness, soreness in the roof of the mouth, a skin rash, or diarrhea. In addition, children with viral infections may have a fever and may feel miserable. A high fever does not necessarily mean that the child has a bacterial infection. Group A streptococcus - Group A streptococcus (GAS) is the name of the bacterium that causes strep throat. Although other bacteria can cause a sore throat, GAS is the most common bacterial cause; up to 30 percent of children with a sore throat will have GAS. Strep throat usually occurs during the winter and early spring, and is most common in school-age children and their younger siblings. Symptoms - Symptoms of strep throat in children older than 3 years often develop suddenly and include fever (temperature ?100.4?F or 38?C), headache, abdominal pain, nausea, and vomiting. Other symptoms can include swollen glands in the neck, white patches of pus in the back or sides of the throat, small red spots on the roof of the mouth, and swelling of the uvula. A cough and cold are not commonly seen in children with strep throat. Strep throat is uncommon in children younger than age 2 to 3 years. However, GAS infection can occur in younger children, and may cause a runny nose and congestion that is prolonged, low-grade fever (?101?F or 38.3?C), and tender glands in the neck. Infants younger than 1 year may be fussy and have a decreased appetite and low-grade fever. SORE THROAT TREATMENT - The treatment of sore throat depends upon the cause; strep throat is treated with an antibiotic while viral pharyngitis is treated with rest, pain relievers, and other measures to reduce symptoms. Strep throat - Strep throat is usually treated with an antibiotic, such as penicillin, or an antibiotic similar to penicillin (eg, amoxicillin). Children who are allergic to penicillin will be given an alternate antibiotic. The antibiotic is usually given in pill or liquid form two or three times per day. A one-time injection is also available, and may be recommended if a child is unwilling to take an oral medication. After completing 24 hours of antibiotics, the child is no longer contagious and may return to school. Symptoms usually improve within 1 to 2 days. However, it is important for the child to finish the entire course of treatment (usually 10 days). If a child does not begin to improve or worsens within 3 days, the child should be reevaluated. Throat pain can be treated with a non-prescription pain medication, if needed. (See 'Pain medications' below.) In addition, parents should monitor their child for dehydration, which can develop if the child is not willing to drink or eat due to a sore throat. (See 'Monitor for dehydration' below.) Viral throat pain - Sore throat caused by viral infections usually last 4 to 5 days. During this time, treatments to reduce pain may be helpful but will not help to eliminate the virus. Antibiotics do not improve throat pain caused by a virus and are not recommended. A child with a viral infection is usually allowed to return to school when there has been no fever for 24 hours and the child feels well enough to pay attention. Pain medications - Throat pain can be treated with a mild pain reliever such as acetaminophen (Tylenol?) or a non-steroidal anti-inflammatory agent such as ibuprofen (Motrin?). These medications should be dosed according to weight, not age. Aspirin is not recommended for children <18 years due to the risk of a potentially serious condition known as Allie syndrome. Monitor for dehydration - Some children with a sore throat are reluctant to drink or eat due to pain. Drinking less fluid can lead to dehydration. To reduce the risk of dehydration, parents can offer warm or cold liquids. (See 'Other interventions' below.) Signs and symptoms of mild dehydration include a slightly dry mouth, increased thirst, and decreased urine output (one wet diaper or void in six hours). Signs of moderate or severe dehydration include decreased urine output (less than one wet diaper or void in six hours), lack of tears when crying, dry mouth, and sunken eyes. A child who is moderately or severely dehydrated should be evaluated by a healthcare provider as soon as possible to determine if treatment is needed. Oral rinses- Salt-water gargles are an old stand-by for relief of throat pain. It is not clear if this treatment is effective, but it is unlikely to be harmful. Most recipes suggest 1/4 to 1/2 teaspoon of salt per cup (8 ounces) of warm water. The water should be gargled and then spit out (not swallowed). Children younger than six to eight years are not able to gargle properly. An oral rinse composed of equal parts of diphenhydramine (Benadryl? liquid) and Maalox? (magnesium hydroxide, aluminum hydroxide, and simethicone) may be helpful for pain caused by a sore mouth or ulcers in the mouth. Children older than six to eight years may swish and spit (not swallow) the mixture. Sprays - Sprays containing topical anesthetics are available to treat sore throat. However, such sprays are no more effective than sucking on hard candy. In addition, a common anesthetic ingredient, benzocaine, can cause allergic reactions. We do not recommend throat sprays for children. Lozenges - A variety of medicated throat lozenges are available to relieve dryness or pain. However, it is not clear that lozenges work any better than hard candy. We do not recommend throat lozenges for children, especially children younger than 3 to 4 years, who can choke. Sucking on hard candy may provide some relief for children older than 3 to 4 years, who are not at risk for choking. Other interventions - Other interventions include sipping warm beverages (eg, honey or lemon tea, chicken soup), cold beverages, or eating cold or frozen desserts (eg, ice cream, popsicles). These treatments are safe for children. Honey should not be given to children younger than 12 months due to the potential risk of botulism poisoning. Alternative therapies - Health food stores, vitamin outlets, and Internet Web sites offer alternative treatments for relief of sore throat pain. We do not recommend these treatments due to the risks of contamination with pesticides/herbicides , inaccurate labeling and dosing information, and a lack of studies showing that these treatments are safe and effective. SORE THROAT PREVENTION - Hand washing is an essential and highly effective way to prevent the spread of infection. Hands should be wet with water and plain soap, and rubbed together for 15 to 30 seconds. Special attention should be paid to the fingernails, between the fingers, and the wrists. Hands should be rinsed thoroughly, and dried with a single use towel. Alcohol-based hand rubs are a good alternative for disinfecting hands if a sink is not available. Hand rubs should be spread over the entire surface of hands, fingers, and wrists until dry, and may be used several times. These rubs can be used repeatedly without skin irritation or loss of effectiveness. Hand rubs are available as a liquid or wipe in small, portable sizes that are easy to carry in a pocket or handbag. When a sink is available, visibly soiled hands should be washed with soap and water. Hands should be washed after coughing, blowing the nose or sneezing. While it is not always possible to limit contact with a person who is sick, avoiding touching the eyes, nose, or mouth after direct contact can help to prevent the spread of infection. In addition, tissues should be used to cover the mouth when sneezing or coughing. These used tissues should be disposed of promptly. Sneezing/coughing into the sleeve of one's clothing (at the inner elbow) is another means of containing sprays of saliva and secretions and has the advantage of not contaminating the hands. WHEN TO SEEK HELP - Parents of a child with throat pain and one or more of the following should contact their healthcare provider immediately: Difficulty swallowing or breathing Excessive drooling in an or young child Temperature ?101?F or 38.3?C Swelling of the neck Child is unable or unwilling to drink or eat Voice sounds muffled Child has a stiff neck or difficulty opening the mouth WHERE TO GET MORE INFORMATION - Your child's healthcare provider is the best source of information for questions and concerns related to your child's medical problem. This article will be updated as needed every four months on our web site ([email or web address]). Information below was obtained from Up to date Last literature review version 19.2: February 2011 This topic last updated: June 13, 2010 Referring Provider: SELF [200] Allergies As of Date: 01/15/2019 Noted Allergy Reaction CODEINE 06/25/2005 7 - Swelling GRASS POLLEN 07/06/2009 POLLEN 07/06/2009 Date Reviewed: 01/15/2019 Reviewed by: Madisyn (Respiratory Equipment Assistant) Aakash - Fully Assessed Reason for Visit: Sore Throat [200] Cmt: x 1 day Primary Visit Diagnosis:Sore throat [J02.9] Order(s):RAPID STREP TEST B/O [2130678] Order #: [id number] GROUP A STREPTOCOCCUS BY PCR [SQGASPCR] Order #: [id number] Prescriptions as of 01/15/2019 Sig: PROBIOTIC-10 ORAL Take by mouth. Problem List As Of Date 01/15/2019 Noted Resolved Acne [L70.9] INVALID FOR* Contraceptive management [Z30.9] INVALID FOR* Vulvar itching [L29.2] INVALID FOR* Other instructions from your clinician: ASSESSMENT/PLAN: 1. Sore throat - ICD9: 462, ICD10: J02.9 - suspect viral - Rapid Strep negative in the office today and Throat culture pending - Discussed supportive care treatment with fluids, rest and analgesia. - The patient may also use warm salt water gargles, throat lozenges and/or OTC throat spray as needed. - Call back if drooling, increased temperature, symptoms of dehydration and/or still sick in one week - RAPID STREP TEST B/O - Follow-up with your PCP in 3-5 days if symptoms have not improved or sooner if symptoms worsen - Discussed red flags and need for immediate medical evaluation if any occur. - Discussed supportive care treatment with fluids, rest and analgesia. - Discussed expected course of illness Madisyn Finn APRN.PLASTER HELPER SORE THROAT INSTRUCTIONS SORE THROAT OVERVIEW - Sore throat is a common problem during childhood, and is usually the result of a bacterial or viral infection. Although sore throat usually resolves without complications, it sometimes requires treatment with an antibiotic. There are some less common causes of sore throat that are serious or even life-threatening. This topic will discuss the most common causes and treatments of sore throat in children, as well as the warning signs of more serious conditions. SORE THROAT CAUSES - The most likely cause of a child's sore throat depends upon the child's age, the season, and the geographic area. While viruses are the most common cause of sore throat, bacteria are another common cause. Bacteria and viruses are spread from one person to another through hand contact. Hands get contaminated when the sick individual touches their nose or mouth and then touches another person directly (lumh-my-zeal contact) or indirectly (lhml-bp-lqhgbv, such as doorknob, telephone, toys). It is difficult to determine the cause of sore throat based upon symptoms alone; an examination and laboratory test are recommended in most cases Viruses - There are many viruses that can cause pain and swelling of the throat. The most common include viruses that cause sore throat as part of an upper respiratory infection, such as the common cold. Other viruses that cause sore throat include influenza, adenovirus, and Deborah-Bernal virus (the cause of mononucleosis). Symptoms - Symptoms that may occur with a viral infection can include a runny nose and congestion, irritation or redness of the eyes, cough, hoarseness, soreness in the roof of the mouth, a skin rash, or diarrhea. In addition, children with viral infections may have a fever and may feel miserable. A high fever does not necessarily mean that the child has a bacterial infection. Group A streptococcus - Group A streptococcus (GAS) is the name of the bacterium that causes strep throat. Although other bacteria can cause a sore throat, GAS is the most common bacterial cause; up to 30 percent of children with a sore throat will have GAS. Strep throat usually occurs during the winter and early spring, and is most common in school-age children and their younger siblings. Symptoms - Symptoms of strep throat in children older than 3 years often develop suddenly and include fever (temperature ?100.4?F or 38?C), headache, abdominal pain, nausea, and vomiting. Other symptoms can include swollen glands in the neck, white patches of pus in the back or sides of the throat, small red spots on the roof of the mouth, and swelling of the uvula. A cough and cold are not commonly seen in children with strep throat. Strep throat is uncommon in children younger than age 2 to 3 years. However, GAS infection can occur in younger children, and may cause a runny nose and congestion that is prolonged, low-grade fever (?101?F or 38.3?C), and tender glands in the neck. Infants younger than 1 year may be fussy and have a decreased appetite and low-grade fever. SORE THROAT TREATMENT - The treatment of sore throat depends upon the cause; strep throat is treated with an antibiotic while viral pharyngitis is treated with rest, pain relievers, and other measures to reduce symptoms. Strep throat - Strep throat is usually treated with an antibiotic, such as penicillin, or an antibiotic similar to penicillin (eg, amoxicillin). Children who are allergic to penicillin will be given an alternate antibiotic. The antibiotic is usually given in pill or liquid form two or three times per day. A one-time injection is also available, and may be recommended if a child is unwilling to take an oral medication. After completing 24 hours of antibiotics, the child is no longer contagious and may return to school. Symptoms usually improve within 1 to 2 days. However, it is important for the child to finish the entire course of treatment (usually 10 days). If a child does not begin to improve or worsens within 3 days, the child should be reevaluated. Throat pain can be treated with a non-prescription pain medication, if needed. (See 'Pain medications' below.) In addition, parents should monitor their child for dehydration, which can develop if the child is not willing to drink or eat due to a sore throat. (See 'Monitor for dehydration' below.) Viral throat pain - Sore throat caused by viral infections usually last 4 to 5 days. During this time, treatments to reduce pain may be helpful but will not help to eliminate the virus. Antibiotics do not improve throat pain caused by a virus and are not recommended. A child with a viral infection is usually allowed to return to school when there has been no fever for 24 hours and the child feels well enough to pay attention. Pain medications - Throat pain can be treated with a mild pain reliever such as acetaminophen (Tylenol?) or a non-steroidal anti-inflammatory agent such as ibuprofen (Motrin?). These medications should be dosed according to weight, not age. Aspirin is not recommended for children <18 years due to the risk of a potentially serious condition known as Allie syndrome. Monitor for dehydration - Some children with a sore throat are reluctant to drink or eat due to pain. Drinking less fluid can lead to dehydration. To reduce the risk of dehydration, parents can offer warm or cold liquids. (See 'Other interventions' below.) Signs and symptoms of mild dehydration include a slightly dry mouth, increased thirst, and decreased urine output (one wet diaper or void in six hours). Signs of moderate or severe dehydration include decreased urine output (less than one wet diaper or void in six hours), lack of tears when crying, dry mouth, and sunken eyes. A child who is moderately or severely dehydrated should be evaluated by a healthcare provider as soon as possible to determine if treatment is needed. Oral rinses- Salt-water gargles are an old stand-by for relief of throat pain. It is not clear if this treatment is effective, but it is unlikely to be harmful. Most recipes suggest 1/4 to 1/2 teaspoon of salt per cup (8 ounces) of warm water. The water should be gargled and then spit out (not swallowed). Children younger than six to eight years are not able to gargle properly. An oral rinse composed of equal parts of diphenhydramine (Benadryl? liquid) and Maalox? (magnesium hydroxide, aluminum hydroxide, and simethicone) may be helpful for pain caused by a sore mouth or ulcers in the mouth. Children older than six to eight years may swish and spit (not swallow) the mixture. Sprays - Sprays containing topical anesthetics are available to treat sore throat. However, such sprays are no more effective than sucking on hard candy. In addition, a common anesthetic ingredient, benzocaine, can cause allergic reactions. We do not recommend throat sprays for children. Lozenges - A variety of medicated throat lozenges are available to relieve dryness or pain. However, it is not clear that lozenges work any better than hard candy. We do not recommend throat lozenges for children, especially children younger than 3 to 4 years, who can choke. Sucking on hard candy may provide some relief for children older than 3 to 4 years, who are not at risk for choking. Other interventions - Other interventions include sipping warm beverages (eg, honey or lemon tea, chicken soup), cold beverages, or eating cold or frozen desserts (eg, ice cream, popsicles). These treatments are safe for children. Honey should not be given to children younger than 12 months due to the potential risk of botulism poisoning. Alternative therapies - Health food stores, vitamin outlets, and Internet Web sites offer alternative treatments for relief of sore throat pain. We do not recommend these treatments due to the risks of contamination with pesticides/herbicides , inaccurate labeling and dosing information, and a lack of studies showing that these treatments are safe and effective. SORE THROAT PREVENTION - Hand washing is an essential and highly effective way to prevent the spread of infection. Hands should be wet with water and plain soap, and rubbed together for 15 to 30 seconds. Special attention should be paid to the fingernails, between the fingers, and the wrists. Hands should be rinsed thoroughly, and dried with a single use towel. Alcohol-based hand rubs are a good alternative for disinfecting hands if a sink is not available. Hand rubs should be spread over the entire surface of hands, fingers, and wrists until dry, and may be used several times. These rubs can be used repeatedly without skin irritation or loss of effectiveness. Hand rubs are available as a liquid or wipe in small, portable sizes that are easy to carry in a pocket or handbag. When a sink is available, visibly soiled hands should be washed with soap and water. Hands should be washed after coughing, blowing the nose or sneezing. While it is not always possible to limit contact with a person who is sick, avoiding touching the eyes, nose, or mouth after direct contact can help to prevent the spread of infection. In addition, tissues should be used to cover the mouth when sneezing or coughing. These used tissues should be disposed of promptly. Sneezing/coughing into the sleeve of one's clothing (at the inner elbow) is another means of containing sprays of saliva and secretions and has the advantage of not contaminating the hands. WHEN TO SEEK HELP - Parents of a child with throat pain and one or more of the following should contact their healthcare provider immediately: Difficulty swallowing or breathing Excessive drooling in an infant or young child Temperature ?101?F or 38.3?C Swelling of the neck Child is unable or unwilling to drink or eat Voice sounds muffled Child has a stiff neck or difficulty opening the mouth WHERE TO GET MORE INFORMATION - Your child's healthcare provider is the best source of information for questions and concerns related to your child's medical problem. This article will be updated as needed every four months on our web site ([email or web address]). Information below was obtained from Up to date Last literature review version 19.2: February 2011 This topic last updated: June 13, 2010 Medications Discontinued During This Encounter Drospirenone-Ethinyl Estradiol (YASM* 1 Pa* 12 08/23/2015 01/15/2019 Route: ORAL Sig: Take 1 tablet by mouth once daily. Patient not taking: Reported on 11/27/2018 Disc: Reason for discontinue is not on file. Encounter Status:Closed by MADISYN FINN on 01/15/19 Normal [facility] Group A Strep by PCRon 01-15 GAS Specimen Source Throat Swab Normal [facility] Comment on above: Performed By: #### G ASPCR ####[facility] [place], [place] [id number] Group A Strep PCR Negative Normal [facility] Comment on above: Result Comment: This test was developed and its performance characteristics determined by [facility] [place] ([facility]). It has not been cleared or approved by the FDA. [facility] is regulated under CLIA as qualified to perform high-complexity testing. This test is used for clinical purposes. It should not be regarded as investigational or for research. Performed By: #### G ASPCR ####[facility] [id number] [place], [place] [phone] PROGRESSon 01-15-2019 PROGRESS HNO ID: [id number] Author: Madisyn ([facility]) Aakash Service: ? Author Type: Nurse Practitioner Type: Progress Notes Filed: 01/15/2019 5:11 PM Note Text: Subjective HPI Debby Hart is a 28 year old female who presents with sore throat since yesterday. She has not had any sick contacts. She has used cough drops. Review of Systems Constitutional: Negative. Negative for fever. HENT: Positive for congestion and sore throat. Respiratory: Negative for cough. Cardiovascular: Negative. Gastrointestinal: Positive for nausea. Skin: Negative. Negative for rash. Neurological: Positive for headaches. BP 118/78 Pulse 100 Temp 36.8 ?C (98.2 ?F) (Left Tympanic) Resp 16 Wt 84.7 kg (186 lb 12.8 oz) SpO2 99% BMI 30.15 kg/m? PAST MEDICAL HISTORY Diagnosis Date - Acne - Environmental allergies - PMH - PAST MEDICAL HISTORY OF 05/27 normal color vision - PMH - PAST MEDICAL HISTORY OF 02/24 chip bone left foot - Precocious sexual development and puberty, not elsewhere classified age 14 years PAST SURGICAL HISTORY Procedure Laterality Date - NONE - TOOTH EXTRACTION ALLERGIES Codeine; Grass Pollen; Pollen MEDICATIONS Lactobac no.41/Bifidobact no.7 (PROBIOTIC-10 ORAL) Take by mouth. Drospirenone-Ethinyl Estradiol (CLARE, 28,) 3-0.03 mg per tablet Take 1 tablet by mouth once daily. FAMILY HISTORY Problem Relation Age of Onset - Heart Maternal Grandfather MT - Cancer Maternal Grandfather Lung - other (lung cancer) Other Maternal Great Aunt - other (throat cancer) Other Maternal Greatgrandmother - other (stomach cancer) Other Maternal Greatgrandfather Social History Tobacco Use - Smoking status: Current Some Day Smoker - Smokeless tobacco: Never Used - Tobacco comment: Trying to quit, smoking 1 pack every 2 weeks Substance Use Topics - Alcohol use: No - Drug use: No Objective Physical Exam Constitutional: She is well-developed, well-nourished, and in no distress. HENT: Right Ear: Tympanic membrane, external ear and ear canal normal. Left Ear: Tympanic membrane, external ear and ear canal normal. Nose: Nose normal. No rhinorrhea. Mouth/Throat: Uvula is midline, oropharynx is clear and moist and mucous membranes are normal. No oropharyngeal exudate, posterior oropharyngeal edema or posterior oropharyngeal erythema. Neck: Neck supple. Cardiovascular: Normal rate and regular rhythm. Pulmonary/Chest: Effort normal and breath sounds normal. No respiratory distress. She has no wheezes. She has no rales. Lymphadenopathy: She has no cervical adenopathy. Neurological: She is alert. Skin: Skin is warm and dry. No rash noted. Nursing note and vitals reviewed. ASSESSMENT/PLAN: 1. Sore throat - ICD9: 462, ICD10: J02.9 - suspect viral - Rapid Strep negative in the office today and Throat culture pending - Discussed supportive care treatment with fluids, rest and analgesia. - The patient may also use warm salt water gargles, throat lozenges and/or OTC throat spray as needed. - Call back if drooling, increased temperature, symptoms of dehydration and/or still sick in one week - RAPID STREP TEST B/O - STREP DNA - Follow-up with your PCP in 3-5 days if symptoms have not improved or sooner if symptoms worsen - Discussed red flags and need for immediate medical evaluation if any occur. - Discussed supportive care treatment with fluids, rest and analgesia. - Discussed expected course of illness Madisyn Finn APRN.CNP Normal [facility] PROGRESSon 12-08-2018 PROGRESS HNO ID: [id number] Author: Francisca Suresh Service: (none) Author Type: Physician Type: Progress Notes Filed: 12/08/2018 3:17 PM Note Text: Can you let the patient know her biopsy shows low grade changes that do not need treated? We will repeat a pap smear in 12 months. Thank you [facility] CNOVon 12-02-2018 CNOV Office Visit (WOOB) DEBBY HART ([id number]) 1990 F Date Time Provider Department 12/02/18 3:15 PM FRANCISCA SURESH During your visit today, we recorded the following information about you: Blood pressure Weight 96/60 82.6 kg Francisca Suresh MD 12/02/2018 4:04 PM Signed Debby George Tanner is a 27 year old female who presents today for a colposcopy. Her last pap smear was ASCUS with positive HPV from September 2018. Patient has a history of abnormal pap: Yes - LSIL in 2017. She has had prior treatment: none. test: negative UNIVERSAL PROTOCOL / SAFETY CHECKLIST Procedure to be performed: Colposcopy Sign in Communication: Completed Time Out: Team Confirms the Correct Patient, Correct Procedure, Correct Site and Site Marking, Correct Position (if applicable), Prep and Dry Time (if applicable). Time: 3:45 Affirmation of Time Out: YES Sign Out Discussion: Completed PROCEDURE: EXTERNAL GENITALIA: Normal in appearance without lesions VAGINA: Normal in appearance without lesions CERVIX: Speculum placed in vagina and excellent visualization of cervix achieved. Cervix swabbed x 3 with 3% acetic acid solution. Cervix grossly normal. Squamocolumnar junction visualized. acetowhite changes noted at 6 o'clock. BIOPSY: Done at 6:00 ECC: done HEMOSTASIS: Obtained with silver nitrate and pressure Procedure Summary: Patient tolerated procedure well and colposcopy was adequate. ASSESSMENT: HPV effect PLAN: Specimens labeled and sent to Pathology. Will notify patient of results in 1-2 weeks. Post-procedure instructions reviewed and written material given to the patient. DO Sweetie Campbell MA 12/02/2018 3:15 PM Signed YOUR RECOVERY It may take a few weeks for your cervix to heal. While your cervix heals, you may have: - Vaginal bleeding (less than a normal menstrual period) - Mild cramping - A brown-black vaginal discharge (similar to coffee grounds) which is a result of the paste used to help stop bleeding from the procedure Do NOT put anything in the vagina for 1 week after your colposcopy if your doctor does a biopsy of your cervix. This includes sex, tampons, and douches. If you have any discomfort, you may take an over the counter pain medication (motrin, advil, ibuprofen, tylenol, etc). If this does not relieve your discomfort, contact your doctor's office for a prescription strength pain medication. It is okay to wear a sanitary pad until the discharge and spotting stops. RISKS Although problems seldom occur with colposcopy, there can be some complications. You may feel faint during and shortly after the procedure as well as have some bleeding and vaginal discharge after the procedure. There is also a risk of infection after the procedure. These complications are rare and can be easily treated. You should contact you doctor is you have any of the following: - Heavy bleeding (more than your normal period) - Bleeding with clots - Severe abdominal pain - Fever (more than 100.4F) - Foul smelling vaginal discharge RESULTS If a biopsy was taken, we will have the results of your biopsy in 1-2 weeks. If you do not hear the results of your biopsy after 2 weeks, please contact your physicians office for the results. Depending on the biopsy results, your doctor will determine your follow up plan which may include further testing or treatments. STAYING HEALTHY After the procedure, you will need to see your doctor for follow up visits during the year. At these visits your doctor will check the health of your cervix with a pap smear. After three normal pap smears, your doctor will allow you to return to having exams once a year. If you have another abnormal pap smear, you may need closer follow up for longer or you may need additional treatment. By making a few lifestyle changes after the procedure, you can help protect the health of your cervix: - Have regular pelvic exams and pap smears as ordered by your doctor. - Stop smoking as smoking increases your risk of developing a cancer of the cervix - If you have more than one sexual partner, limit your number of partners and use condoms to reduce your risks of STDs. If you have any additional questions, please contact your doctor's office. Referring Provider: FRANCISCA SURESH [[id number]] Allergies As of Date: 12/02/2018 Noted Allergy Reaction CODEINE 06/25/2005 7 - Swelling GRASS POLLEN 07/06/2009 POLLEN 07/06/2009 Date Reviewed: 12/02/2018 Reviewed by: Sweetie Tobin - Fully Assessed Reason for Visit: Colposcopy [1551] Primary Visit Diagnosis:ASCUS with positive high risk HPV cervical [R87.610, R87.810] Order(s):HCG QUAL UR B/O [[id number]] Order #: [id number] COLPOSCOPY [[id number]] Order #: [id number] SURGICAL PATHOLOGY [[id number]] Order #: [id number] Prescriptions as of 12/02/2018 Sig: PROBIOTIC-10 ORAL Take by mouth. DROSPIRENONE 3 MG-ETHINYL EST* Take 1 tablet by mouth once d* Patient not taking: Reported on 11/27/2018 Problem List As Of Date 12/02/2018 Noted Resolved Acne [L70.9] INVALID FOR* Contraceptive management [Z30.9] INVALID FOR* Vulvar itching [L29.2] INVALID FOR* Other instructions from your clinician: YOUR RECOVERY It may take a few weeks for your cervix to heal. While your cervix heals, you may have: - Vaginal bleeding (less than a normal menstrual period) - Mild cramping - A brown-black vaginal discharge (similar to coffee grounds) which is a result of the paste used to help stop bleeding from the procedure Do NOT put anything in the vagina for 1 week after your colposcopy if your doctor does a biopsy of your cervix. This includes sex, tampons, and douches. If you have any discomfort, you may take an over the counter pain medication (motrin, advil, ibuprofen, tylenol, etc). If this does not relieve your discomfort, contact your doctor's office for a prescription strength pain medication. It is okay to wear a sanitary pad until the discharge and spotting stops. RISKS Although problems seldom occur with colposcopy, there can be some complications. You may feel faint during and shortly after the procedure as well as have some bleeding and vaginal discharge after the procedure. There is also a risk of infection after the procedure. These complications are rare and can be easily treated. You should contact you doctor is you have any of the following: - Heavy bleeding (more than your normal period) - Bleeding with clots - Severe abdominal pain - Fever (more than 100.4F) - Foul smelling vaginal discharge RESULTS If a biopsy was taken, we will have the results of your biopsy in 1-2 weeks. If you do not hear the results of your biopsy after 2 weeks, please contact your physicians office for the results. Depending on the biopsy results, your doctor will determine your follow up plan which may include further testing or treatments. STAYING HEALTHY After the procedure, you will need to see your doctor for follow up visits during the year. At these visits your doctor will check the health of your cervix with a pap smear. After three normal pap smears, your doctor will allow you to return to having exams once a year. If you have another abnormal pap smear, you may need closer follow up for longer or you may need additional treatment. By making a few lifestyle changes after the procedure, you can help protect the health of your cervix: - Have regular pelvic exams and pap smears as ordered by your doctor. - Stop smoking as smoking increases your risk of developing a cancer of the cervix - If you have more than one sexual partner, limit your number of partners and use condoms to reduce your risks of STDs. If you have any additional questions, please contact your doctor's office. Disposition: Return in about 1 year (around 12/02/2019) for Annual exam. Follow-up and Disposition History Recorded Encounter Status:Closed by FRANCISCA SURESH MD on 12/02/18 Normal [facility] PROGRESSon 12-02-2018 PROGRESS HNO ID: [id number] Author: Francisca Suresh Service: (none) Author Type: Physician Type: Progress Notes Filed: 12/02/2018 4:04 PM Note Text: Debby Hart is a 27 year old female who presents today for a colposcopy. Her last pap smear was ASCUS with positive HPV from September 2018. Patient has a history of abnormal pap: Yes - LSIL in 2017. She has had prior treatment: none. test: negative UNIVERSAL PROTOCOL / SAFETY CHECKLIST Procedure to be performed: Colposcopy Sign in Communication: Completed Time Out: Team Confirms the Correct Patient, Correct Procedure, Correct Site and Site Marking, Correct Position (if applicable), Prep and Dry Time (if applicable). Time: 3:45 Affirmation of Time Out: YES Sign Out Discussion: Completed PROCEDURE: EXTERNAL GENITALIA: Normal in appearance without lesions VAGINA: Normal in appearance without lesions CERVIX: Speculum placed in vagina and excellent visualization of cervix achieved. Cervix swabbed x 3 with 3% acetic acid solution. Cervix grossly normal. Squamocolumnar junction visualized. acetowhite changes noted at 6 o'clock. BIOPSY: Done at 6:00 ECC: done HEMOSTASIS: Obtained with silver nitrate and pressure Procedure Summary: Patient tolerated procedure well and colposcopy was adequate. ASSESSMENT: HPV effect PLAN: Specimens labeled and sent to Pathology. Will notify patient of results in 1-2 weeks. Post-procedure instructions reviewed and written material given to the patient. DO Geurline Campbell [facility] SURGICAL PATHOLOGYon 019 SURGICAL PATHOLOGY Specimen originated from [facility] Specimen #: [id number] Submitting Physician: FRANCISCA SURESH DO FINAL DIAGNOSIS 1. Cervix, 6 o'clock, biopsy (A) - Low grade squamous intraepithelial lesion (CARLA-1). 2. Endocervix, curettage (B) - No tissue remains after processing. Angelina Altamirano MD (Electronic Signature) ____ SPECIMEN SUBMITTED A: 6 O' CLOCK CERVIX, BIOPSY B: ENDOCERVICAL, CURETTINGS CLINICAL DATA ASCUS, +HPV, LMP 11/16/18 GROSS DESCRIPTION A. Received in formalin is one piece of abarca, soft tissue measuring 0.5 x 0.4 x 0.3 cm. Totally submitted in one cassette. B. Received in formalin are multiple abarca, soft mucinous segments of material aggregating to 0.1 by less than 0.1 by less than 0.1 cm. Totally submitted in one cassette. May not survive processing. Gross examination performed at [facility], [address] [place] [address] 12/04/2018 2:10:18 AM Date of Report: 12/07/2018 Date of Procedure: 12/02/2018 Date of Receipt: 12/03/2018 Submitted by: FRANCISCA SURESH DO Location: [facility] Diagnostic interpretation performed at [facility], [address] [place] [address]. Normal [facility] CNOVon 11-27-2018 CNOV Office Visit (WOOB) TANNERDEBBY Ariel ([id number]) 1990 F Date Time Provider Department 11/27/18 4:05 PM FRANCISCA SURESH WOGAURANG During your visit today, we recorded the following information about you: Blood pressure Weight Last Period 120/72 82.5 kg 11/16/18 Francisca Suresh MD 11/27/2018 5:21 PM Signed Debby George Tanner is a 27 year old female who presents for problem visit for abnormal pap smear at outside facility. HPI: Pap on 09/30/18: ASCUS, +HPV at [facility]. Previous pap 08/18/17 LSIL. Currently sexually active with 1 male partner. Has been with partner for 8 months. Using condoms for control. Had been on OCP's starting at the age 18, stopped OCP's a few months ago. No concern for STI's today. H/o HPV, but no other history of STI's. She has no complaints today. She is emotional and tearful regarding the abnormal pap smear and +HPV test. 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 PAST MEDICAL HISTORY Diagnosis Date - Acne - Environmental allergies - PMH - PAST MEDICAL HISTORY OF 05/27 normal color vision - PMH - PAST MEDICAL HISTORY OF 02/24 chip bone left foot - Precocious sexual development and puberty, not elsewhere classified age 14 years REVIEW OF SYSTEMS Abdomen: No abdominal pain, nausea, vomiting, diarrhea, or constipation. Bladder: No dysuria. Upholstery Technician: No AUB. Expanded ROS: N/A Allergies and current medication updated:Yes EXAM: BP 120/72 Wt 181 lb 12.8 oz (82.5kg) LMP 11/16/2018 GENERAL: pleasant female who is tearful HEENT: Normocephalic and atraumatic NECK: full range of motion DERMATOLOGY: Normal, without lesions, non-icteric and non-hirsute CHEST: Normal inspiratory effort ABDOMEN: soft, non-tender and no masses PELVIC: external genitalia normal, normal Bartholin's glands, urethra, Brisbane's glands, no vulvar lesions, no cervical lesions, good vaginal support, physiologic discharge present, normal appearing perineal body and perianal region BIMANUAL: uterus normal size, shape and consistency, no adnexal masses and non-tender NEURO: exam grossly non-focal EXTREMITIES: normal ASSESSMENT AND PLAN: Encounter Diagnosis ICD-10-CM 1. Abnormal cervical Papanicolaou smear, unspecified abnormal pap finding R87.619 2. ASCUS with positive high risk HPV cervical R87.610 R87.810 ? Counseling and reassurance provided today ? All of her questions were answered ? Discussed natural course of HPV virus ? Encouraged to quit smoking ? Reviewed colposcopy ? Recommended that she check to see if she received the Gardasil vaccine in the past, and also check insurance coverage. To let us know at her next visit ? RTO 1 wk for alen Suresh, Referring Provider: SELF [[id number]] Allergies As of Date: 11/27/2018 Noted Allergy Reaction CODEINE 06/25/2005 7 - Swelling GRASS POLLEN 07/06/2009 POLLEN 07/06/2009 Date Reviewed: 11/27/2018 Reviewed by: Sweetie Tobin - Fully Assessed Reason for Visit: Follow Up [171] Primary Visit Diagnosis:Abnormal cervical Papanicolaou smear, unspecified abnormal pap finding [R87.619] Other Visit Diagnosis:ASCUS with positive high risk HPV cervical [R87.610, R87.810] Prescriptions as of 11/27/2018 Sig: PROBIOTIC-10 ORAL Take by mouth. DROSPIRENONE 3 MG-ETHINYL EST* Take 1 tablet by mouth once d* Patient not taking: Reported on 11/27/2018 Problem List As Of Date 11/27/2018 Noted Resolved Acne [L70.9] INVALID FOR* Contraceptive management [Z30.9] INVALID FOR* Vulvar itching [L29.2] INVALID FOR* Level of Service: NEW PATIENT VISIT LEVEL 2 [79899] Disposition: Return in about 1 week (around 12/04/2018) for For colposcopy with SW. Follow-up and Disposition History Recorded Encounter Status:Closed by FRANCISCA SURESH MD on 11/27/18 Normal [facility] PROGRESSon 11-27-2018 PROGRESS HNO ID: [id number] Author: Francisca Suresh Service: (none) Author Type: Physician Type: Progress Notes Filed: 11/27/2018 5:21 PM Note Text: Debby Hart is a 27 year old female who presents for problem visit for abnormal pap smear at outside facility. HPI: Pap on 09/30/18: ASCUS, +HPV at [facility]. Previous pap 08/18/17 LSIL. Currently sexually active with 1 male partner. Has been with partner for 8 months. Using condoms for control. Had been on OCP's starting at the age 18, stopped OCP's a few months ago. No concern for STI's today. H/o HPV, but no other history of STI's. She has no complaints today. She is emotional and tearful regarding the abnormal pap smear and +HPV test. 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 PAST MEDICAL HISTORY Diagnosis Date - Acne - Environmental allergies - PMH - PAST MEDICAL HISTORY OF 05/27 normal color vision - PMH - PAST MEDICAL HISTORY OF 02/24 chip bone left foot - Precocious sexual development and puberty, not elsewhere classified age 14 years REVIEW OF SYSTEMS Abdomen: No abdominal pain, nausea, vomiting, diarrhea, or constipation. Bladder: No dysuria. Upholstery Technician: No AUB. Expanded ROS: N/A Allergies and current medication updated:Yes EXAM: BP 120/72 Wt 181 lb 12.8 oz (82.5kg) LMP 11/16/2018 GENERAL: pleasant female who is tearful HEENT: Normocephalic and atraumatic NECK: full range of motion DERMATOLOGY: Normal, without lesions, non-icteric and non-hirsute CHEST: Normal inspiratory effort ABDOMEN: soft, non-tender and no masses PELVIC: external genitalia normal, normal Bartholin's glands, urethra, Brisbane's glands, no vulvar lesions, no cervical lesions, good vaginal support, physiologic discharge present, normal appearing perineal body and perianal region BIMANUAL: uterus normal size, shape and consistency, no adnexal masses and non-tender NEURO: exam grossly non-focal EXTREMITIES: normal ASSESSMENT AND PLAN: Encounter Diagnosis ICD-10-CM 1. Abnormal cervical Papanicolaou smear, unspecified abnormal pap finding R87.619 2. ASCUS with positive high risk HPV cervical R87.610 R87.810 ? Counseling and reassurance provided today ? All of her questions were answered ? Discussed natural course of HPV virus ? Encouraged to quit smoking ? Reviewed colposcopy ? Recommended that she check to see if she received the Gardasil vaccine in the past, and also check insurance coverage. To let us know at her next visit ? RTO 1 wk for colpo Francisca Suresh, DO Normal [facility] CNOVon 11-20-2018 CNOV Office Visit ([facility] ) DEBBY HART ([id number]) 1990 F Date Time Provider Department 11/20/18 11:15 AM MILLY VERDIN ([facility]) [facility] During your visit today, we recorded the following information about you: Temperature Pulse Respiration Blood pressure 98.2 degrees 124/minute 16/minute 128/82 Weight 82.7 kg Milly Verdin APRN.CNP 11/20/2018 11:39 AM Signed Subjective The history is provided by the patient. No auto electrical technician was used. HPI Debby Hart is a 27 year old female who presents today for CC of frequency of urination, and burning after voids. She is just ending her menstrual cycle. She felt like she was getting a yeast infection, and started 3 day monistat. She is sexually active declines std testing BP 128/82 Pulse (!) 124 Temp 36.8 ?C (98.2 ?F) (Left Tympanic) Resp 16 Wt 82.7 kg (182 lb 6.4 oz) BMI 29.44 kg/m? Social History Marital status: Single Spouse name: Years of education: 12 Number of children: 0 Occupational History Occupation Employer Comment [employer] Social History Main Topics Smoking status: Current Some Day Smoker Packs/day: 0.00 Years: 0.00 Smokeless tobacco: Never Used Alcohol use: Yes Comment: Rarely Drug use: No Sexual activity: Yes Partners with: Male control/protection: Condom, Pill PAST MEDICAL HISTORY Diagnosis Date - Acne - Environmental allergies - [facility] - PAST MEDICAL HISTORY OF 05/27 normal color vision - [facility] - PAST MEDICAL HISTORY OF 02/24 chip bone left foot - Precocious sexual development and puberty, not elsewhere classified age 14 years I have confirmed and edited as necessary, the [facility] Review of Systems Constitutional: Negative for chills and fever. Gastrointestinal: Negative for abdominal pain. Genitourinary: Positive for dysuria and frequency. Negative for flank pain, hematuria and urgency. All other systems reviewed and are negative. Objective Physical Exam Constitutional: She is oriented to person, place, and time and well-developed, well-nourished, and in no distress. Abdominal: Normal appearance and bowel sounds are normal. She exhibits no abdominal bruit, no pulsatile midline mass and no mass. There is no hepatosplenomegaly. There is no tenderness. There is no rigidity, no rebound, no guarding, no CVA tenderness, no tenderness at McBurney's point and negative Sellers's sign. Neurological: She is alert and oriented to person, place, and time. Psychiatric: Affect normal. Nursing note and vitals reviewed. Component Latest Ref Rng AND Units 11/20/2018 GLUCOSE UA (POCT) Negative mg/dL Negative BILIRUBIN UA (POCT) Negative Negative KETONE UA (POCT) Negative mg/dL Negative SPECIFIC GRAVITY UA (POCT) 1.005 - 1.030 1.015 HEMOGLOBIN/BLOOD UA (POCT) Negative Trace-lysed (A) PH UA (POCT) 4.5 - 8.0 7.0 PROTEIN UA (POCT) Negative mg/dL Negative UROBILINOGEN UA (POCT) Normal E.U./dL 0.2 NITRITE UA (POCT) Negative Negative LEUKOCYTES UA (POCT) Negative Negative COLOR UA (POCT) Light yellow CLARITY UA (POCT) Clear ASSESSMENT/PLAN: 1. Dysuria - ICD9: 788.1, ICD10: R30.0 (primary diagnosis) acute - UA positive for hematuria - end of menstrual cycle - Send urine for culture - Patient education for prevention given - UA DIP, URINE (POC) - URINE CULTURE Call [phone] ok to leave message 2. UTI symptoms - ICD9: 788.99, ICD10: R39.9 Urinary tract infection (UTI) We will send the urine for culture, which shows us what organism, if any, we are treating. If we need to start an antibiotic, you will receive a call in 48-72 hours. * Seek medical care immediately, call 911, or go to ER if you have high fevers, severe flank or low back pain, blood in your urine. * Follow up with primary care provider if symptoms persist or worsen. Complete 3 day monistat Diagnosis and treatment plan were discussed and questions were answered to the patient's satisfaction. Pt acknowledged understanding of concepts and follow up plan. Specific signs and symptoms that would indicate the need for higher level of care were discussed in detail warranting prompt ER evaluation. Milly Verdin APRN.KYM Verdin APRN.CNP 11/20/2018 11:35 AM Signed ASSESSMENT/PLAN: 1. Dysuria - ICD9: 788.1, ICD10: R30.0 (primary diagnosis) acute - UA positive for hematuria - end of menstrual cycle - Send urine for culture - Patient education for prevention given - UA DIP, URINE (POC) - URINE CULTURE 2. UTI symptoms - ICD9: 788.99, ICD10: R39.9 Urinary tract infection (UTI) We will send the urine for culture, which shows us what organism, if any, we are treating. If we need to start an antibiotic, you will receive a call in 48-72 hours. * Seek medical care immediately, call 911, or go to ER if you have high fevers, severe flank or low back pain, blood in your urine. * Follow up with primary care provider if symptoms persist or worsen. Complete 3 day monistat Referring Provider: SELF [200] Allergies As of Date: 11/20/2018 Noted Allergy Reaction CODEINE 06/25/2005 7 - Swelling GRASS POLLEN 07/06/2009 POLLEN 07/06/2009 Date Reviewed: 11/20/2018 Reviewed by: Milly ([facility]) Era - Fully Assessed Reason for Visit: UTI [116] Primary Visit Diagnosis:Dysuria [R30.0] Other Visit Diagnosis:UTI symptoms [R39.9] Order(s):UA DIP, URINE (POC) [[id number]] Order #: [id number]. #:[id number] URINE CULTURE [FORMERLY [facility]] Order #: [id number] Prescriptions as of 11/20/2018 Sig: DROSPIRENONE 3 MG-ETHINYL EST* Take 1 tablet by mouth once d* Problem List As Of Date 11/20/2018 Noted Resolved Acne [L70.9] INVALID FOR* Contraceptive management [Z30.9] INVALID FOR* Vulvar itching [L29.2] INVALID FOR* Other instructions from your clinician: ASSESSMENT/PLAN: 1. Dysuria - ICD9: 788.1, ICD10: R30.0 (primary diagnosis) acute - UA positive for hematuria - end of menstrual cycle - Send urine for culture - Patient education for prevention given - UA DIP, URINE (POC) - URINE CULTURE 2. UTI symptoms - ICD9: 788.99, ICD10: R39.9 Urinary tract infection (UTI) We will send the urine for culture, which shows us what organism, if any, we are treating. If we need to start an antibiotic, you will receive a call in 48-72 hours. * Seek medical care immediately, call 911, or go to ER if you have high fevers, severe flank or low back pain, blood in your urine. * Follow up with primary care provider if symptoms persist or worsen. Complete 3 day monistat Encounter Status:Closed by MILLY VERDIN CNP on 11/20/18 Normal [facility] PROGRESSon 11-20-2018 PROGRESS HNO ID: [id number] Author: Milly (Kym) Era Service: (none) Author Type: Nurse Practitioner Type: Progress Notes Filed: 11/20/2018 11:39 AM Note Text: Subjective The history is provided by the patient. No auto electrical technician was used. HPI Debby Hart is a 27 year old female who presents today for CC of frequency of urination, and burning after voids. She is just ending her menstrual cycle. She felt like she was getting a yeast infection, and started 3 day monistat. She is sexually active declines std testing BP 128/82 Pulse (!) 124 Temp 36.8 ?C (98.2 ?F) (Left Tympanic) Resp 16 Wt 82.7 kg (182 lb 6.4 oz) BMI 29.44 kg/m? Social History Marital status: Single Spouse name: Years of education: 12 Number of children: 0 Occupational History Occupation Employer Comment [employer]* Social History Main Topics Smoking status: Current Some Day Smoker Packs/day: 0.00 Years: 0.00 Smokeless tobacco: Never Used Alcohol use: Yes Comment: Rarely Drug use: No Sexual activity: Yes Partners with: Male control/protection: Condom, Pill PAST MEDICAL HISTORY Diagnosis Date - Acne - Environmental allergies - PMH - PAST MEDICAL HISTORY OF 05/27 normal color vision - PM - PAST MEDICAL HISTORY OF 02/24 chip bone left foot - Precocious sexual development and puberty, not elsewhere classified age 14 years I have confirmed and edited as necessary, the [facility] Review of Systems Constitutional: Negative for chills and fever. Gastrointestinal: Negative for abdominal pain. Genitourinary: Positive for dysuria and frequency. Negative for flank pain, hematuria and urgency. All other systems reviewed and are negative. Objective Physical Exam Constitutional: She is oriented to person, place, and time and well-developed, well-nourished, and in no distress. Abdominal: Normal appearance and bowel sounds are normal. She exhibits no abdominal bruit, no pulsatile midline mass and no mass. There is no hepatosplenomegaly. There is no tenderness. There is no rigidity, no rebound, no guarding, no CVA tenderness, no tenderness at McBurney's point and negative Sellers's sign. Neurological: She is alert and oriented to person, place, and time. Psychiatric: Affect normal. Nursing note and vitals reviewed. Component Latest Ref Rng AND Units 11/20/2018 GLUCOSE UA (POCT) Negative mg/dL Negative BILIRUBIN UA (POCT) Negative Negative KETONE UA (POCT) Negative mg/dL Negative SPECIFIC GRAVITY UA (POCT) 1.005 - 1.030 1.015 HEMOGLOBIN/BLOOD UA (POCT) Negative Trace-lysed (A) PH UA (POCT) 4.5 - 8.0 7.0 PROTEIN UA (POCT) Negative mg/dL Negative UROBILINOGEN UA (POCT) Normal E.U./dL 0.2 NITRITE UA (POCT) Negative Negative LEUKOCYTES UA (POCT) Negative Negative COLOR UA (POCT) Light yellow CLARITY UA (POCT) Clear ASSESSMENT/PLAN: 1. Dysuria - ICD9: 788.1, ICD10: R30.0 (primary diagnosis) acute - UA positive for hematuria - end of menstrual cycle - Send urine for culture - Patient education for prevention given - UA DIP, URINE (POC) - URINE CULTURE Call [phone] ok to leave message 2. UTI symptoms - ICD9: 788.99, ICD10: R39.9 Urinary tract infection (UTI) We will send the urine for culture, which shows us what organism, if any, we are treating. If we need to start an antibiotic, you will receive a call in 48-72 hours. * Seek medical care immediately, call 911, or go to ER if you have high fevers, severe flank or low back pain, blood in your urine. * Follow up with primary care provider if symptoms persist or worsen. Complete 3 day monistat Diagnosis and treatment plan were discussed and questions were answered to the patient's satisfaction. Pt acknowledged understanding of concepts and follow up plan. Specific signs and symptoms that would indicate the need for higher level of care were discussed in detail warranting prompt ER evaluation. Milly Verdin APRN.PLASTER HELPER Normal [facility] Urine Cultureon 11-20-2018 Bacteria identified Cx Nom (U) Sp. Request/Comment: - Specimen received in preservative Culture Result - No growth (<1,000 CFU/ml) Normal [facility] Comment on above: Performed By: #### U RCUL #### [facility] [address] [place], [place] [address] Encounters Encounter Date Encounter Type Care Provider Facility Start: 02-22-2025 End: 02-22-2025 Emergency department patient visit Curtis Custer Facility:[facility] Payers Date Payer Category Payer Self-pay 2025 Unknown [id number] Unknown [id number] Summary Purpose Family History No Family History Records FoundNo Family History Records Found Advance Directives No Advanced Directives Records FoundNo Advanced Directives Records Found Additional Source Comments INFORMATION SOURCE (unrecogn ized section and content) DATE CREATED AUTHOR 09/24/2019 [facility] DATE CREATED AUTHOR AUTHOR'S ORGANIZ ATION 03/03/2025 [facility] FOR RECORDS PERTAINING TO PATIENTS WHO ARE OR HAVE BEEN ENROLLED IN A CHEMICAL DEPENDENCY/SUBSTANCEABUSE PROGRAM, SOME INFORMATION MAY BE OMITTED. This clinical summary was aggregated from multiple sources. Caution should be exercised in using it in the provision of clinical care. This summary normalizes information from multiple sources, and as a consequence, information in this document may materially change the coding, format and clinical context of patient data. In addition, data may be omitted in some cases. CLINICAL DECISIONS SHOULD BE BASED ON THE PRIMARY CLINICAL RECORDS. [employer] provides no warranty or guarantee of the accuracy or completeness of information in this document.
== END 2025-09-13 15:08 | disposition home or self-care (01) ==
PROVIDERS: Emergency Provider Emergency Medicine; Visit Provider Emergency Medicine
DX: M54.6 Pain in thoracic spine (principal); F17.290 Nicotine dependence, other tobacco product, uncomplicated; F17.210 Nicotine dependence, cigarettes, uncomplicated
CPT/HCPCS: 71046; 81001; 81025; 87086; 87088; 96372; 99283